=== PATIENT | female | born 1945 | race Caucasian/White ===

== ENCOUNTER 2017-10-03 16:08 | Inpatient (IN) ==
[2017-10-03] MEDS ORDERED: Famotidine 20 MG TABLET PO PRN (20:20)
[2017-10-03] MEDS ORDERED: Acetaminophen 325 MG TABLET PO PRN (20:25)
[2017-10-03] MEDS ORDERED: Bisacodyl 10 MG RECTAL SUPPOSITORY RC PRN (20:25)
[2017-10-03] MEDS ORDERED: Ondansetron ODT 4 MG TAB.RAPDIS SL PRN (20:29)
[2017-10-03] MEDS ORDERED: NON-FORMULARY MEDICATION 1 EACH EACH PO SCH (21:00)
[2017-10-03] MEDS ORDERED: Melatonin 3 MG TABLET PO SCH (21:00)
[2017-10-03] MEDS: Sennosides 8.6 MG TABLET PO SCH (22:27)
[2017-10-03] MEDS: *HR* OxyCODONE Immed Rel 5 MG TABLET PO PRN (22:28)
[2017-10-04] MEDS: *HR* OxyCODONE Immed Rel 5 MG TABLET PO PRN ×2 (02:18→16:35)
[2017-10-04 06:01] LABS: Basophils % 0.3 %; Eosinophils # 0.2 K/mcL (0.0-0.6); Eosinophils % 1.7 %; Hematocrit 26.4 % (35.3-44.9); Immature Granulocytes % 0.3 % (0-4); Lymphocytes # 1.5 K/mcL (0.6-4.6); Lymphocytes % 16.3 %; Mean Corpuscular HGB Conc 34.1 g/dL (31.6-35.5); Mean Corpuscular Hemoglobin 32.3 pg (28.0-33.3); Mean Corpuscular Volume 94.6 fL (83.0-100.0); Mean Platelet Volume 9.2 fL (9.4-12.4); Monocytes # 0.9 K/mcL (0.0-1.3); Monocytes % 10.3 %; Neutrophils # 6.4 K/mcL (1.6-8.9); Platelet Count 495 K/mcL (140-400); Red Blood Count 2.79 M/mcL (3.82-4.97); Red Cell Distribution Width 12.1 % (11.5-14.5); Segmented Neutrophils % 71.1 %
[2017-10-04 06:14] LABS: Alanine Aminotransferase 26 Units/L (7-52); Albumin 2.9 g/dL (3.5-5.7); Albumin/Globulin Ratio 1.2 (1.1-2.2); Alkaline Phosphatase 103 Units/L (34-104); Aspartate Amino Transferase 34 Units/L (13-39); BUN/Creatinine Ratio 13 (6-26); Bilirubin,Total 0.3 mg/dL (0.3-1.0); Blood Urea Nitrogen 7 mg/dL (8-23); Carbon Dioxide 27 mEq/L (23-29); Chloride 101 mEq/L (98-107); Globulin 2.5 g/dL (2.4-3.5); Glucose 113 mg/dL (70-105); INR 1.1; Osmolality,Calculated 277 (280-300); Prothrombin Time 12.1 Seconds (9.4-12.1); Sodium 134 mEq/L (136-145); Total Protein 5.4 g/dL (6.4-8.9); eGFR For Non-African Americans > 60 (> 60)
[2017-10-04 06:17] LABS: Activated Partial Thrombo Time 35.2 Seconds (26.0-36.0)
[2017-10-04] MEDS: diazePAM 5 MG TABLET PO PRN ×2 (11:45→22:50)
[2017-10-04] MEDS: Aspirin 81 MG TAB.CHEW PO SCH (11:45)
[2017-10-04] MEDS: Sennosides 8.6 MG TABLET PO SCH ×2 (11:45→22:50)
[2017-10-04] MEDS: Loratadine/Pseudophed (12 HR) 1 EACH TABLET PO SCH (11:46)
[2017-10-04] MEDS: Multivit/Ca/Min/Fe/FA 1 TAB TABLET PO SCH (11:47)
[2017-10-04] MEDS: *HR* Enoxaparin 40 MG/0.4 ML SYRINGE SQ SCH (11:55)
[2017-10-04] MEDS: Tiotropium 18 MCG inhalation IH SCH (12:03)
[2017-10-04] MEDS: Latanoprost 2.5 ML BOTTLE BOTH EYES SCH (12:57)
--- NOTE | 2017-10-04 13:39 | Internal Med History&Physical ---
Date of Encounter: 10/04/17 Time of Encounter: 13:34 Assessment and Plan (1) Cervical myelopathy Current visit: Yes Status: Acute recent fusion C2-T2. continue cervical collar. PT and OT to eval and treat. will follow progress. f/u with neurologist as scheduled. (2) Osteoarthritis Current visit: Yes Status: Acute stable. will monitor. hx of left TKR with recent fall. having increased pain , has been given the OK from ortho to participate with therapy. Qualifiers: Osteoarthritis location: multiple joints Osteoarthritis type: primary Qualified Code(s): M15.0 - Primary generalized (osteo)arthritis (3) COPD (chronic obstructive pulmonary disease) Current visit: Yes Status: Chronic stable. monitor. Qualifiers: COPD type: unspecified COPD Qualified Code(s): J44.9 - Chronic obstructive pulmonary disease, unspecified Internal Medicine - H&P: HPI Admitted From: Hospital to Hospital Transfer Plans for Post Hospital Care: Home History of present illness: Ms. Hansen is a 72 year old female admitted to unit status post C2 3 OT to confusion after presenting with severe cervical myelopathy and worsening upper extremity dysfunction. Had severe spinal cord compression in upper C-spine. This was performed at [facility] with Dr Andrew. Past medical history includes COPD, she was a former smoker. Arthritis, AAA diagnosed 10 years ago, prior C3 to C7 ACDF. Goal is to return to home. Lives with daughter and son-in-law although they are not in Great health themselves and cannot provide much care. Lives in a one-story house with 3 steps to enter. Patient denies any increased pain, fever, chills, nausea vomiting or diarrhea at this time. Taking Valium to control postop spasms. States this is effective. Past Med Surg Social Fam HX - Past Medical History Medical history: arthritis, COPD, glaucoma, hyperlipidemia, hypertension Additional medical history: Aneurysm Psychiatric history: no psych history - Past Surgical History Surgical History: herniorrhaphy, orthopedic, other, other Additional surgical history: Left Knee Replacement, Tubal Ligation, Cervical Disk Surgery - Social History Smoking Status: Former smoker Smokeless Tobacco Status: No Alcohol use: none Drug use: none - Family History Mother Hx Family Cardiac Disorders: Yes (HTN, heart disease) Hx Family Endocrine Disorder: Yes (hypothyroidism) Father Hx Family Cardiac Disorders: Yes (Heart disease) Sister Hx Family Cancer: Yes (Metastatic gynecological cancer) Internal Medicine - H&P: Meds Albuterol Sulfate [Proair Hfa] 2 puff IH Q6HR PRN 11/11/15 [History] Atorvastatin [Lipitor] 10 mg PO HS 11/11/15 [History] Latanoprost [Xalatan] 1 drop BOTH EYES DAILY 11/11/15 [History] Lisinopril-HCTZ 10-12.5 [Prinzide 10-12.5] 1 each PO DAILY 11/11/15 [History] Meloxicam 3 mg PO BID 11/11/15 [History] Aspirin 81 mg PO DAILY 11/12/15 [History] Multivitamin [Multivitamins] 1 each PO DAILY 06/29/17 [History] Naproxen [Naprosyn] 500 mg PO BID 06/29/17 [History] Tiotropium [Spiriva] 18 mcg IH 0700 06/29/17 [History] Albuterol Sulfate [Albuterol Inhaler] 0 puff IH Q6HR 10/03/17 [History] Famotidine [Pepcid] 20 mg PO DAILY PRN 10/03/17 [History] Loratadine/Pseudophed (12 HR) [Claritin D (12HR)] 1 each PO DAILY 10/03/17 [ History] Melatonin [Melatin] 9 mg PO HS 10/03/17 [History] Rogers-3 Acid Ethyl Esters [Lovaza] 1 gm PO DAILY 10/03/17 [History] 3 Allergy/AdvReac Type Severity Reaction Status Date / Time No Known Allergies Allergy Verified 10/03/17 19:34 All Systems PM: A 10-system review of systems was performed and is negative for pertinent findings except as documented above in the HPI. - Constitutional Constitutional: no chills, no fever(s), no night sweats - EENT Eyes: no change in vision, no discharge, no pain, no photophobia Ears: no ear discharge, no ear pain, no tinnitus Nose, mouth and throat: no dysphagia, no nasal discharge, no neck pain, no sore throat - Cardiovascular Cardiovascular ROS IM: no chest pain, no diaphoresis, no dyspnea, no lightheadedness, no palpitations, no syncope - Respiratory Respiratory: no cough, no dyspnea, no wheezing, no excessive phlegm production - Gastrointestinal Gastrointestinal: no abdominal pain, no diarrhea, no hematemesis, no hematochezia, no melena, no nausea, no vomiting - Genitourinary Genitourinary: no change in urinary stream, no dysuria, no flank pain, no hematuria - Musculoskeletal Musculoskeletal ROS IM: no numbness, no tingling - Integumentary Integumentary IM: no rash, no unusual bruising - Neurological Neurological ROS: no confusion, no convulsions, no focal weakness, no numbness, no tingling, no tremor(s) - Hematologic/Lymphatic Hematologic/Lymphatic: no easy bruising - Constitutional Vitals: Temp Pulse Resp BP Pulse Ox 97.8 F 130 16 111/67 94 10/04/17 12:00 10/04/17 12:00 10/04/17 12:00 10/04/17 12:00 10/04/17 12:00 General appearance: Present: cooperative, A&O X 3, pleasant, no acute distress, answers questions appropriately Exam: wearing cervical collar. - Head Head exam: Present: atraumatic, normocephalic - Eye Eye exam: Present: PERRL, conjuntiva pink, sclera anicteric Pupils: Present: PERRL - Neck Neck exam general surgery: Present: supple, trachea midline. Absent: lymphadenopathy - Respiratory Respiratory exam: Present: CTAB. Absent: accessory muscle use, rales, rhonchi, wheezes - Cardiovascular Cardiovascular exam: Present: RRR, +S1, +S2. Absent: diastolic murmur, gallop, rubs, systolic murmur - GI/Abdominal GI/Abdominal exam: Present: normal bowel sounds, soft, no peritoneal signs. Absent: distended, tenderness - Extremities Exam Extremities exam: Present: warm, radial pulses palpable and symmetrical. Absent : calf tenderness, cyanotic, pedal edema - Neurological Exam Neurological exam: Present: CN II-XII intact, oriented X3, no focal deficits. Absent: pronater drift, facial droop, speech deficit - Skin Skin exam: Present: dry, intact Internal Med - H&P Results - Labs CBC & Chem 7: 10/04/17 05:10 10/04/17 05:10 Labs: Short CBC 10/04/17 Range/Units 05:10 WBC 9.0 (4.3-11.1) K/mcL Hgb 9.0 L (11.5-15.4) g/dL Hct 26.4 L (35.3-44.9) % Plt Count 495 H (140-400) K/mcL Neutrophils # 6.4 (1.6-8.9) K/mcL BMP 10/04/17 05:10 Sodium 134 L Potassium 4.0 Chloride 101 Carbon Dioxide 27 BUN 7 L Creatinine 0.53 L Glucose 113 H Calcium 9.0 Liver Function 10/04/17 Range/Units 05:10 Total Bilirubin 0.3 (0.3-1.0) mg/dL AST 34 (13-39) Units/L ALT 26 (7-52) Units/L Alkaline Phosphatase 103 (34-104) Units/L Albumin 2.9 L (3.5-5.7) g/dL
--- NOTE | 2017-10-04 16:21 | Electrocardiograph Report ---
[place] [address] Test Date: 2017-10-03 Pat Name: Mary Hansen Department: 2001 Room: 116 Gender: F Clerk [employer]: [id number] : 1945 Requested By: Nathan Romero Order Number: [id number] Reading MD: Di Oh Measurements Intervals [place] Rate: 135 P: 35 NH: 102 QRS: 49 QRSD: 77 T: 47 QT: 263 QTc: 342 Interpretive Statements BASELINE ARTIFACT LIMITS INTERPRETATION PROBABLE SINUS RHYTHM WITH PAC'S Electronically Signed On 10-04-2017 16:20:06 EDT by Di Oh
[2017-10-05] MEDS: *HR* OxyCODONE Immed Rel 5 MG TABLET PO PRN ×3 (04:32→16:37)
[2017-10-05] MEDS: Sennosides 8.6 MG TABLET PO SCH ×2 (09:39→20:11)
[2017-10-05] MEDS: Loratadine/Pseudophed (12 HR) 1 EACH TABLET PO SCH (09:39)
[2017-10-05] MEDS: Multivit/Ca/Min/Fe/FA 1 TAB TABLET PO SCH (09:39)
[2017-10-05] MEDS: Aspirin 81 MG TAB.CHEW PO SCH (09:40)
[2017-10-05] MEDS: *HR* Enoxaparin 40 MG/0.4 ML SYRINGE SQ SCH (09:41)
[2017-10-05] MEDS: Latanoprost 2.5 ML BOTTLE BOTH EYES SCH ×2 (09:42→20:12)
[2017-10-05] MEDS: Tiotropium 18 MCG inhalation IH SCH (09:42)
--- NOTE | 2017-10-05 12:50 | Internal Med Progress Note ---
Date of Encounter: 10/05/17 Time of Encounter: 12:48 - Assessment and plan (1) Cervical myelopathy Current Visit: Yes Status: Acute Assessment and plan: Improving. Continue PT and OT. Will follow progress. Follow up with neurosurgeon as scheduled. (2) Osteoarthritis Current Visit: Yes Status: Acute Assessment and plan: Pain controlled. Continue current medications. Qualifiers: Osteoarthritis location: multiple joints Osteoarthritis type: primary Qualified Code(s): M15.0 - Primary generalized (osteo)arthritis (3) COPD (chronic obstructive pulmonary disease) Current Visit: Yes Status: Chronic Assessment and plan: Controlled. Will monitor. Qualifiers: COPD type: unspecified COPD Qualified Code(s): J44.9 - Chronic obstructive pulmonary disease, unspecified - Time Spent With Patient less than 15 minutes - Subjective Interval history: Participating well with therapy. Ambulating to bathroom with Walker with unsteady gait. Patient incontinent of bowel and bladder. Has not had a bowel movement for a couple days. Discussed taking suppository if no results later. Requires assist with toileting for wiping and pulling pants up-and-down. Strength and bilateral upper extremities is slowly improving. Able to feed self with adaptive equipment. Denies complaints of pain, fever, chills, nausea , vomiting or diarrhea. Family at bedside. - Constitutional Vitals: Temp Pulse Resp BP Pulse Ox 98.6 F 122 16 100/66 94 10/05/17 06:36 10/05/17 06:36 10/05/17 06:36 10/05/17 06:36 10/05/17 06:36 General appearance: Present: cooperative, A&O X 3, pleasant, no acute distress, answers questions appropriately - Head Head exam: Present: atraumatic, normocephalic - Eye Eye exam: Present: PERRL, conjuntiva pink, sclera anicteric Pupils: Present: PERRL - Neck Neck exam general surgery: Present: supple, trachea midline. Absent: lymphadenopathy - Respiratory Respiratory exam: Present: CTAB. Absent: accessory muscle use, rales, rhonchi, wheezes - Cardiovascular Cardiovascular exam: Present: RRR, +S1, +S2. Absent: diastolic murmur, gallop, rubs, systolic murmur - GI/Abdominal GI/Abdominal exam: Present: normal bowel sounds, soft, no peritoneal signs. Absent: distended, tenderness - Extremities Exam Extremities exam: Present: warm, radial pulses palpable and symmetrical. Absent : calf tenderness, cyanotic, pedal edema Additional comments: Weakness to bilateral upper extremities. 4\5 strength - Neurological Exam Neurological exam: Present: CN II-XII intact, oriented X3, no focal deficits. Absent: pronater drift, facial droop, speech deficit - Skin Skin exam: Present: dry, intact Internal Medicine: Result - Labs CBC & Chem 7: 10/04/17 05:10 10/04/17 05:10 - ABG Interpretation ABG results: PT/INR, D-dimer PT 12.1 Seconds (9.4-12.1) 10/04/17 05:10 Consult Discharge Plan - Plan Referrals: Farrukh Cotton MD [Primary Care Provider] -
[2017-10-06] MEDS: *HR* OxyCODONE Immed Rel 5 MG TABLET PO PRN ×3 (06:13→20:45)
[2017-10-06] MEDS: Aspirin 81 MG TAB.CHEW PO SCH (07:57)
[2017-10-06] MEDS: Multivit/Ca/Min/Fe/FA 1 TAB TABLET PO SCH (07:57)
[2017-10-06] MEDS: Sennosides 8.6 MG TABLET PO SCH ×2 (07:57→20:45)
[2017-10-06] MEDS: Loratadine/Pseudophed (12 HR) 1 EACH TABLET PO SCH (07:57)
[2017-10-06] MEDS: *HR* Enoxaparin 40 MG/0.4 ML SYRINGE SQ SCH (07:59)
[2017-10-06] MEDS: Tiotropium 18 MCG inhalation IH SCH (09:31)
--- NOTE | 2017-10-06 10:25 | Internal Med Progress Note ---
Date of Encounter: 10/06/17 Time of Encounter: :23 - Assessment and plan (1) Cervical myelopathy Current Visit: Yes Status: Acute Assessment and plan: Patient continues to show moderate generalized myelopathy. Noted continued slight hyperreflexia. No acute neurological deficits had been noted on exam when compared patient's previous exams documented. Nursing reports patient is able to ambulate with feasible walker, but remains a fall risk due to unsteady gait. Patient reportedly has difficulty initiating standing from a sitting position due to weakened hip extension. Posterior neck surgical incision with slight erythema but remains intact and appears to be healing well. Cervical collar remains in place and will continue for 4 weeks per neurosurgery. Patient to continue with physical therapy which she states she believes is progressing well. Patient states she feels that she has gained some of her strength back over the past several days. Patient to continue follow-up with neurosurgery. (2) S/P TKR (total knee replacement) Current Visit: Yes Status: Chronic Assessment and plan: Patient continues to have complaints of pain to her left knee, which increases slightly with physical therapy. Patient has Lidoderm patch in place which she states is effective. Left knee remains slightly swollen but no erythema. Patient's knee replacement was done remotely. Qualifiers: Laterality: left Qualified Code(s): Z96.652 - Presence of left artificial knee joint - Time Spent With Patient less than 15 minutes - Subjective Interval history: Patient appears relaxed. Patient states she has slight discomfort to her left knee, which has increased during therapy. Patient states that she has had a remote knee replacement and that the use of Lidoderm patches have been effective. Patient states that she feels that her strength is improving slightly with physical therapy. Patient denies any acute neurological deficits. Patient continues to have cervical collar in place. - Constitutional Vitals: Temp Pulse Resp BP Pulse Ox 98.1 F 120 20 122/75 99 10/06/17 08:39 10/06/17 08:39 10/06/17 08:39 10/06/17 08:39 10/06/17 08:39 General appearance: Present: cooperative, A&O X 3, pleasant, no acute distress, answers questions appropriately - Head Head exam: Present: atraumatic, normocephalic - Eye Eye exam: Present: PERRL, conjuntiva pink, sclera anicteric Pupils: Present: PERRL - Neck Neck exam general surgery: Present: supple, trachea midline. Absent: lymphadenopathy Additional comments: Posterior midline surgical incision appears intact with no drainage noted. Minimal erythema noted surrounding incision. Dressing is dry and intact - Respiratory Respiratory exam: Present: CTAB. Absent: accessory muscle use, rales, rhonchi, wheezes - Cardiovascular Cardiovascular exam: Present: RRR, +S1, +S2. Absent: diastolic murmur, gallop, rubs, systolic murmur - GI/Abdominal GI/Abdominal exam: Present: normal bowel sounds, soft, no peritoneal signs. Absent: distended, tenderness - Extremities Exam Extremities exam: Present: warm, radial pulses palpable and symmetrical. Absent : calf tenderness, cyanotic, pedal edema Additional comments: Left knee appears slightly swollen with Lidoderm patch in place. No erythema or signs of obvious injury noted - Neurological Exam Neurological exam: Present: CN II-XII intact, oriented X3. Absent: pronater drift, facial droop, speech deficit Additional comments: Patient continues to have generalized weakness. MS for BUE at 4/5 for ext/flex, and noted slight increased weakness distally with grasp strength R>L. Noted diffiulty with fine motor of hands. Pt observed being able to hold her pitcher of water with right hand. BLE also with 4/5, with noted increased weakness noted on hip flex. Hyperreflexia noted to all extremities +3/5. Noted Hoffmanns sign bilateral. No decreased sensation noted. - Skin Skin exam: Present: dry, intact Internal Medicine: Result - Labs CBC & Chem 7: 10/04/17 05:10 10/04/17 05:10 - ABG Interpretation ABG results: PT/INR, D-dimer PT 12.1 Seconds (9.4-12.1) 10/04/17 05:10 Consult Discharge Plan - Plan Referrals: Farrukh Cotton MD [Primary Care Provider] -
[2017-10-06] MEDS: Latanoprost 2.5 ML BOTTLE BOTH EYES SCH (20:45)
[2017-10-07] MEDS: *HR* OxyCODONE Immed Rel 5 MG TABLET PO PRN ×3 (08:53→21:30)
[2017-10-07] MEDS: Sennosides 8.6 MG TABLET PO SCH ×2 (08:54→21:29)
[2017-10-07] MEDS: Loratadine/Pseudophed (12 HR) 1 EACH TABLET PO SCH (08:54)
[2017-10-07] MEDS: Multivit/Ca/Min/Fe/FA 1 TAB TABLET PO SCH (08:54)
[2017-10-07] MEDS: Aspirin 81 MG TAB.CHEW PO SCH (08:54)
[2017-10-07] MEDS: *HR* Enoxaparin 40 MG/0.4 ML SYRINGE SQ SCH (08:55)
--- NOTE | 2017-10-07 12:42 | Internal Med Progress Note ---
Date of Encounter: 10/07/17 Time of Encounter: 12:40 - Assessment and plan (1) Cervical myelopathy Current Visit: Yes Status: Acute Assessment and plan: Patient continues to show moderate generalized myelopathy. Noted continued slight hyperreflexia. No acute neurological deficits had been noted on exam when compared patient's previous exams documented. Nursing reports patient is able to ambulate with feasible walker, but remains a fall risk due to unsteady gait. Patient reportedly has difficulty initiating standing from a sitting position due to weakened hip extension. Posterior neck surgical incision with slight erythema but remains intact and appears to be healing well. Cervical collar remains in place and will continue for 4 weeks per neurosurgery. Patient to continue with physical therapy which she states she believes is progressing well. Patient to continue follow-up with neurosurgery. (2) S/P TKR (total knee replacement) Current Visit: Yes Status: Chronic Assessment and plan: Patient continues to have complaints of pain to her left knee, which increases slightly with physical therapy. Patient has Lidoderm patch in place which she states is effective. Left knee remains slightly swollen but no erythema. Patient's knee replacement was done remotely. Qualifiers: Laterality: left Qualified Code(s): Z96.652 - Presence of left artificial knee joint - Time Spent With Patient less than 15 minutes - Subjective Interval history: Patient appears relaxed. Patient states she has slight discomfort to her left knee, which has increased during therapy. Patient states that she has had pain to a remote knee replacement and that the use of Lidoderm patches have been effective. Patient states that she feels that her strength is improving slightly with physical therapy. Patient denies any acute neurological deficits. Patient continues to have cervical collar in place. - Constitutional Vitals: Temp Pulse Resp BP Pulse Ox 97.7 F 80 16 112/72 96 10/07/17 07:00 10/07/17 07:00 10/07/17 07:00 10/07/17 07:00 10/07/17 07:00 General appearance: Present: cooperative, A&O X 3, pleasant, no acute distress, answers questions appropriately - Head Head exam: Present: atraumatic, normocephalic - Eye Eye exam: Present: PERRL, conjuntiva pink, sclera anicteric Pupils: Present: PERRL - Neck Neck exam general surgery: Present: supple, trachea midline. Absent: lymphadenopathy - Respiratory Respiratory exam: Present: CTAB. Absent: accessory muscle use, rales, rhonchi, wheezes - Cardiovascular Cardiovascular exam: Present: RRR, +S1, +S2. Absent: diastolic murmur, gallop, rubs, systolic murmur - GI/Abdominal GI/Abdominal exam: Present: normal bowel sounds, soft, no peritoneal signs. Absent: distended, tenderness - Extremities Exam Extremities exam: Present: warm, radial pulses palpable and symmetrical. Absent : calf tenderness, cyanotic, pedal edema - Neurological Exam Neurological exam: Present: CN II-XII intact, oriented X3. Absent: pronater drift, facial droop, speech deficit Additional comments: Patient continues with generalized weakness due to central cord syndrome. Patient has muscle strength of 4/5 to all extremities. Patient has difficulty with fine motor when using her hands. Posterior neck midline incision remains dry and intact. Cervical collar in place - Skin Skin exam: Present: dry, intact Internal Medicine: Result - Labs CBC & Chem 7: 10/04/17 05:10 10/04/17 05:10 - ABG Interpretation ABG results: PT/INR, D-dimer PT 12.1 Seconds (9.4-12.1) 10/04/17 05:10 Consult Discharge Plan - Plan Referrals: Farrukh Cotton MD [Primary Care Provider] -
[2017-10-07] MEDS: Tiotropium 18 MCG inhalation IH SCH (13:45)
[2017-10-07] MEDS: Latanoprost 2.5 ML BOTTLE BOTH EYES SCH (21:29)
[2017-10-08] MEDS: Aspirin 81 MG TAB.CHEW PO SCH (07:42)
[2017-10-08] MEDS: Sennosides 8.6 MG TABLET PO SCH ×2 (07:42→19:51)
[2017-10-08] MEDS: *HR* Enoxaparin 40 MG/0.4 ML SYRINGE SQ SCH (07:42)
[2017-10-08] MEDS: Multivit/Ca/Min/Fe/FA 1 TAB TABLET PO SCH (07:43)
[2017-10-08] MEDS: Loratadine/Pseudophed (12 HR) 1 EACH TABLET PO SCH (07:43)
[2017-10-08] MEDS: Tiotropium 18 MCG inhalation IH SCH (07:54)
[2017-10-08] MEDS: *HR* OxyCODONE Immed Rel 5 MG TABLET PO PRN ×3 (07:55→22:11)
--- NOTE | 2017-10-08 14:47 | Internal Med Progress Note ---
Date of Encounter: 10/08/17 Time of Encounter: 14:45 - Assessment and plan (1) Spinal stenosis, cervical region Current Visit: Yes Status: Acute Assessment and plan: She continues to wear her cervical collar and is compliant with therapy. She is having trouble with her dexterity as noted above. We will continue occupational and physical therapy with hopes of improved movement in activities of daily living. She is living independently and needs to be able to be as independent as possible at home. (2) COPD (chronic obstructive pulmonary disease) Current Visit: Yes Status: Chronic Assessment and plan: Clinically stable. We will continue home regimen and follow. Qualifiers: COPD type: unspecified COPD Qualified Code(s): J44.9 - Chronic obstructive pulmonary disease, unspecified (3) Tobacco abuse Current Visit: No Status: Acute Assessment and plan: She is doing fine without smoking here but plans to smoke when she is discharge from hospital. (4) Hyperlipidemia Current Visit: No Status: Acute Assessment and plan: Clinically stable. We will continue home regimen and follow. Qualifiers: Hyperlipidemia type: unspecified Qualified Code(s): E78.5 - Hyperlipidemia , unspecified - Subjective Interval history: Patient is with complaint. She states that she is not feeling much improvement in her dexterity. She is following physical and occupational therapy. Encouraged to do so, at length, in hopes of going home and being independent. She states that she is moving her bowels on a regular basis and she is pleased with progress, from this standpoint. Patient was interviewed and examined in front of her daughter and ex-. With her permission, their questions were answered as well. Patient has no complaint of chest discomfort, dyspnea, orthopnea, palpitations, nausea or vomiting, constipation or diarrhea, other changes in bowel habits, difficulty with urination, rash or itching, or other new complaints, except as mentioned above. Review of systems is otherwise negative. I discussed management of her care with nursing staff. - Constitutional Vitals: Temp Pulse Resp BP Pulse Ox 98.7 F 103 18 106/69 94 10/08/17 07:41 10/08/17 07:41 10/08/17 07:41 10/08/17 07:41 10/08/17 07:41 General appearance: Present: pleasant, answers questions appropriately Exam: Examination: (Except as mentioned above): General: In no apparent distress. Alert and oriented 3. Nondiaphoretic. Head: Atraumatic and normocephalic. Respiratory: No use of accessory muscles. Lungs are clear throughout. Normal airflow. Cardiovascular: Regular rate and rhythm without murmur appreciated. Abdomen: Bowel sounds are normal. No hepatosplenomegaly mass or tenderness appreciated. Obese and therefore difficult to palpate deeply. Extremities: No cyanosis clubbing or edema. Skin: Warm and non-diaphoretic with no new lesions noted. Internal Medicine: Result - Labs CBC & Chem 7: 10/04/17 05:10 10/04/17 05:10 - ABG Interpretation ABG results: PT/INR, D-dimer PT 12.1 Seconds (9.4-12.1) 10/04/17 05:10 Consult Discharge Plan - Plan Referrals: Farrukh Cotton MD [Primary Care Provider] -
[2017-10-08] MEDS: Latanoprost 2.5 ML BOTTLE BOTH EYES SCH (19:52)
[2017-10-09] MEDS: *HR* Enoxaparin 40 MG/0.4 ML SYRINGE SQ SCH (07:45)
[2017-10-09] MEDS: Aspirin 81 MG TAB.CHEW PO SCH (07:45)
[2017-10-09] MEDS: Multivit/Ca/Min/Fe/FA 1 TAB TABLET PO SCH (07:46)
[2017-10-09] MEDS: Loratadine/Pseudophed (12 HR) 1 EACH TABLET PO SCH (07:47)
[2017-10-09] MEDS: Sennosides 8.6 MG TABLET PO SCH ×2 (07:47→20:10)
[2017-10-09] MEDS: Tiotropium 18 MCG inhalation IH SCH (07:48)
[2017-10-09] MEDS: *HR* OxyCODONE Immed Rel 5 MG TABLET PO PRN ×3 (08:01→20:11)
--- NOTE | 2017-10-09 12:36 | Internal Med Progress Note ---
Date of Encounter: 10/09/17 Time of Encounter: 12:34 - Assessment and plan (1) Cervical myelopathy Current Visit: Yes Status: Acute Assessment and plan: Improving. Continue PT and OT. Will follow progress. Follow up with neurosurgeon as scheduled. (2) Osteoarthritis Current Visit: Yes Status: Acute Assessment and plan: Pain controlled. Continue current medications. Qualifiers: Osteoarthritis location: multiple joints Osteoarthritis type: primary Qualified Code(s): M15.0 - Primary generalized (osteo)arthritis (3) COPD (chronic obstructive pulmonary disease) Current Visit: Yes Status: Chronic Assessment and plan: Controlled. Will monitor. Qualifiers: COPD type: unspecified COPD Qualified Code(s): J44.9 - Chronic obstructive pulmonary disease, unspecified - Time Spent With Patient less than 15 minutes - Subjective Interval history: Ambulating to bathroom with Walker with unsteady gait. Strength in bilateral upper extremities is slowly improving. Able to feed self with adaptive equipment. Denies complaints of pain, fever, chills, nausea, vomiting or diarrhea. Has follow-up appointment with [facility]surgery [facility] tomorrow. - Constitutional Vitals: Temp Pulse Resp BP Pulse Ox 97.4 F L 115 17 123/71 92 10/09/17 06:53 10/09/17 06:53 10/09/17 06:53 10/09/17 06:53 10/09/17 06:53 General appearance: Present: A&O X 3, pleasant, answers questions appropriately - Head Head exam: Present: atraumatic, normocephalic - Eye Eye exam: Present: PERRL, conjuntiva pink, sclera anicteric Pupils: Present: PERRL - Neck Neck exam general surgery: Present: supple, trachea midline. Absent: lymphadenopathy - Respiratory Respiratory exam: Present: CTAB. Absent: accessory muscle use, rales, rhonchi, wheezes - Cardiovascular Cardiovascular exam: Present: RRR, +S1, +S2. Absent: diastolic murmur, gallop, rubs, systolic murmur - GI/Abdominal GI/Abdominal exam: Present: normal bowel sounds, soft, no peritoneal signs. Absent: distended, tenderness - Extremities Exam Extremities exam: Present: warm, radial pulses palpable and symmetrical. Absent : calf tenderness, cyanotic, pedal edema Additional comments: Bilateral upper extremities, hands week. Strength 4\5 - Neurological Exam Neurological exam: Present: CN II-XII intact, oriented X3, no focal deficits. Absent: pronater drift, facial droop, speech deficit - Skin Skin exam: Present: dry, intact Internal Medicine: Result - Labs CBC & Chem 7: 10/04/17 05:10 10/04/17 05:10 - ABG Interpretation ABG results: PT/INR, D-dimer PT 12.1 Seconds (9.4-12.1) 10/04/17 05:10 Consult Discharge Plan - Plan Referrals: Farrukh Cotton MD [Primary Care Provider] -
[2017-10-09] MEDS: Latanoprost 2.5 ML BOTTLE BOTH EYES SCH (20:13)
[2017-10-10] MEDS: *HR* OxyCODONE Immed Rel 5 MG TABLET PO PRN ×4 (01:00→22:10)
[2017-10-10 07:05] LABS: Basophils % 0.5 %; Eosinophils # 0.1 K/mcL (0.0-0.6); Eosinophils % 1.2 %; Hematocrit 27.2 % (35.3-44.9); Hemoglobin 9.1 g/dL (11.5-15.4); Immature Granulocytes % 0.3 % (0-4); Lymphocytes # 1.3 K/mcL (0.6-4.6); Lymphocytes % 14.9 %; Mean Corpuscular HGB Conc 33.5 g/dL (31.6-35.5); Mean Corpuscular Hemoglobin 31.5 pg (28.0-33.3); Mean Corpuscular Volume 94.1 fL (83.0-100.0); Mean Platelet Volume 8.1 fL (9.4-12.4); Monocytes # 0.9 K/mcL (0.0-1.3); Monocytes % 10.6 %; Neutrophils # 6.2 K/mcL (1.6-8.9); Platelet Count 704 K/mcL (140-400); Red Blood Count 2.89 M/mcL (3.82-4.97); Red Cell Distribution Width 12.1 % (11.5-14.5); Segmented Neutrophils % 72.5 %
[2017-10-10 07:48] LABS: BUN/Creatinine Ratio 13 (6-26); Blood Urea Nitrogen 8 mg/dL (8-23); Calcium 9.5 mg/dL (8.6-10.3); Carbon Dioxide 27 mEq/L (23-29); Chloride 95 mEq/L (98-107); Glucose 104 mg/dL (70-105); Osmolality,Calculated 269 (280-300); Sodium 130 mEq/L (136-145); eGFR For Non-African Americans > 60 (> 60)
[2017-10-10] MEDS: Aspirin 81 MG TAB.CHEW PO SCH (08:11)
[2017-10-10] MEDS: Multivit/Ca/Min/Fe/FA 1 TAB TABLET PO SCH (08:11)
[2017-10-10] MEDS: Sennosides 8.6 MG TABLET PO SCH ×2 (08:11→22:09)
[2017-10-10] MEDS: Loratadine/Pseudophed (12 HR) 1 EACH TABLET PO SCH (08:11)
[2017-10-10] MEDS: Tiotropium 18 MCG inhalation IH SCH (10:27)
[2017-10-10] MEDS: *HR* Enoxaparin 40 MG/0.4 ML SYRINGE SQ SCH (11:26)
--- NOTE | 2017-10-10 13:42 | Internal Med Progress Note ---
Date of Encounter: 10/10/17 Time of Encounter: 13:40 - Assessment and plan (1) Cervical myelopathy Current Visit: Yes Status: Acute Assessment and plan: Improving. Continue PT and OT. Will follow progress. went to [facility] today to follow up with surgeon. to return on 11/07 (2) Osteoarthritis Current Visit: Yes Status: Acute Assessment and plan: Pain controlled. Continue current medications. Qualifiers: Osteoarthritis location: multiple joints Osteoarthritis type: primary Qualified Code(s): M15.0 - Primary generalized (osteo)arthritis (3) COPD (chronic obstructive pulmonary disease) Current Visit: Yes Status: Chronic Assessment and plan: Controlled. Will monitor. Qualifiers: COPD type: unspecified COPD Qualified Code(s): J44.9 - Chronic obstructive pulmonary disease, unspecified - Time Spent With Patient less than 15 minutes - Subjective Interval history: went to f/u at [facility] today with neurosurgeon. cervical collar to remain on when up. Strength in bilateral upper extremities is slowly improving. Denies complaints of pain, fever, chills, nausea, vomiting or diarrhea. - Constitutional Vitals: Temp Pulse Resp BP Pulse Ox 98.4 F 105 16 100/65 95 10/10/17 06:33 10/10/17 06:33 10/10/17 06:33 10/10/17 06:33 10/10/17 06:33 General appearance: Present: A&O X 3, pleasant, answers questions appropriately - Head Head exam: Present: atraumatic, normocephalic - Eye Eye exam: Present: PERRL, conjuntiva pink, sclera anicteric Pupils: Present: PERRL - Neck Neck exam general surgery: Present: supple, trachea midline. Absent: lymphadenopathy - Respiratory Respiratory exam: Present: CTAB. Absent: accessory muscle use, rales, rhonchi, wheezes - Cardiovascular Cardiovascular exam: Present: RRR, +S1, +S2. Absent: diastolic murmur, gallop, rubs, systolic murmur - GI/Abdominal GI/Abdominal exam: Present: normal bowel sounds, soft, no peritoneal signs. Absent: distended, tenderness - Extremities Exam Extremities exam: Present: warm, radial pulses palpable and symmetrical. Absent : calf tenderness, cyanotic, pedal edema Additional comments: weakness bilat UE 4/5 - Neurological Exam Neurological exam: Present: CN II-XII intact, oriented X3, no focal deficits. Absent: pronater drift, facial droop, speech deficit - Skin Skin exam: Present: dry, intact Internal Medicine: Result - Labs CBC & Chem 7: 10/10/17 07:00 10/10/17 07:00 Labs: Short CBC 10/10/17 Range/Units 07:00 WBC 8.6 (4.3-11.1) K/mcL Hgb 9.1 L (11.5-15.4) g/dL Hct 27.2 L (35.3-44.9) % Plt Count 704 H (140-400) K/mcL Neutrophils # 6.2 (1.6-8.9) K/mcL BMP 10/10/17 07:00 Sodium 130 L Potassium 4.0 Chloride 95 L Carbon Dioxide 27 BUN 8 Creatinine 0.60 Glucose 104 Calcium 9.5 - ABG Interpretation ABG results: PT/INR, D-dimer PT 12.1 Seconds (9.4-12.1) 10/04/17 05:10 Consult Discharge Plan - Plan Referrals: Farrukh Cotton MD [Primary Care Provider] -
[2017-10-10] MEDS: Latanoprost 2.5 ML BOTTLE BOTH EYES SCH (22:09)
[2017-10-11] MEDS: *HR* OxyCODONE Immed Rel 5 MG TABLET PO PRN ×4 (06:54→23:10)
[2017-10-11] MEDS: Multivit/Ca/Min/Fe/FA 1 TAB TABLET PO SCH (09:19)
[2017-10-11] MEDS: Tiotropium 18 MCG inhalation IH SCH (09:19)
[2017-10-11] MEDS: Sennosides 8.6 MG TABLET PO SCH ×2 (09:20→21:27)
[2017-10-11] MEDS: Loratadine/Pseudophed (12 HR) 1 EACH TABLET PO SCH (09:20)
[2017-10-11] MEDS: Aspirin 81 MG TAB.CHEW PO SCH (09:20)
[2017-10-11] MEDS: diazePAM 5 MG TABLET PO PRN ×2 (09:20→21:26)
[2017-10-11] MEDS: *HR* Enoxaparin 40 MG/0.4 ML SYRINGE SQ SCH (09:21)
--- NOTE | 2017-10-11 09:31 | Internal Med Progress Note ---
Date of Encounter: 10/11/17 Time of Encounter: 09:29 - Assessment and plan (1) Cervical myelopathy Current Visit: Yes Status: Acute Assessment and plan: Improving. Continue PT and OT. Will follow progress. went to [facility] today to follow up with surgeon. to return on 11/07 (2) Osteoarthritis Current Visit: Yes Status: Acute Assessment and plan: Pain controlled. Continue current medications. Qualifiers: Osteoarthritis location: multiple joints Osteoarthritis type: primary Qualified Code(s): M15.0 - Primary generalized (osteo)arthritis (3) COPD (chronic obstructive pulmonary disease) Current Visit: Yes Status: Chronic Assessment and plan: Controlled. Will monitor. Qualifiers: COPD type: unspecified COPD Qualified Code(s): J44.9 - Chronic obstructive pulmonary disease, unspecified - Time Spent With Patient less than 15 minutes - Subjective Interval history: participating well with therapy. min assist to transfer with walker. requires assistance with pulling up pants for toileting. feeds self after set up with use of adaptive equiptment. cervical collar to remain on when up. Strength in bilateral upper extremities is slowly improving. Denies complaints of pain, fever, chills, nausea, vomiting or diarrhea. maintaining appetite and hydration. - Constitutional Vitals: Temp Pulse Resp BP Pulse Ox 98.1 F 113 16 105/70 95 10/11/17 07:14 10/11/17 07:14 10/11/17 07:14 10/11/17 07:14 10/11/17 07:14 General appearance: Present: A&O X 3, pleasant, answers questions appropriately - Head Head exam: Present: atraumatic, normocephalic - Eye Eye exam: Present: PERRL, conjuntiva pink, sclera anicteric Pupils: Present: PERRL - Neck Neck exam general surgery: Present: supple, trachea midline. Absent: lymphadenopathy - Respiratory Respiratory exam: Present: CTAB. Absent: accessory muscle use, rales, rhonchi, wheezes - Cardiovascular Cardiovascular exam: Present: RRR, +S1, +S2. Absent: diastolic murmur, gallop, rubs, systolic murmur - GI/Abdominal GI/Abdominal exam: Present: normal bowel sounds, soft, no peritoneal signs. Absent: distended, tenderness - Extremities Exam Extremities exam: Present: warm, radial pulses palpable and symmetrical. Absent : calf tenderness, cyanotic, pedal edema Additional comments: weakness BUE 4/5 - Neurological Exam Neurological exam: Present: CN II-XII intact, oriented X3, no focal deficits. Absent: pronater drift, facial droop, speech deficit - Skin Skin exam: Present: dry, intact Internal Medicine: Result - Labs CBC & Chem 7: 10/10/17 07:00 10/10/17 07:00 - ABG Interpretation ABG results: PT/INR, D-dimer PT 12.1 Seconds (9.4-12.1) 10/04/17 05:10 - VTE Documentation of Mechanical Device: Graduated compression elastic hosiery Consult Discharge Plan - Plan Referrals: Farrukh Cotton MD [Primary Care Provider] -
[2017-10-11] MEDS: Latanoprost 2.5 ML BOTTLE BOTH EYES SCH (21:26)
[2017-10-12] MEDS: *HR* OxyCODONE Immed Rel 5 MG TABLET PO PRN ×3 (05:11→22:50)
[2017-10-12] MEDS: *HR* Enoxaparin 40 MG/0.4 ML SYRINGE SQ SCH (07:30)
[2017-10-12] MEDS: Multivit/Ca/Min/Fe/FA 1 TAB TABLET PO SCH (07:31)
[2017-10-12] MEDS: Sennosides 8.6 MG TABLET PO SCH ×2 (07:31→19:40)
[2017-10-12] MEDS: Loratadine/Pseudophed (12 HR) 1 EACH TABLET PO SCH (07:31)
[2017-10-12] MEDS: Aspirin 81 MG TAB.CHEW PO SCH (07:31)
[2017-10-12] MEDS: Tiotropium 18 MCG inhalation IH SCH (07:55)
--- NOTE | 2017-10-12 14:09 | Internal Med Progress Note ---
Date of Encounter: 10/12/17 Time of Encounter: 14:08 - Assessment and plan (1) Cervical myelopathy Current Visit: Yes Status: Acute Assessment and plan: Improving. Continue PT and OT. Will follow progress. went to [facility] today to follow up with surgeon. to return on 11/07 (2) Osteoarthritis Current Visit: Yes Status: Acute Assessment and plan: Pain controlled. Continue current medications. Qualifiers: Osteoarthritis location: multiple joints Osteoarthritis type: primary Qualified Code(s): M15.0 - Primary generalized (osteo)arthritis (3) COPD (chronic obstructive pulmonary disease) Current Visit: Yes Status: Chronic Assessment and plan: Controlled. Will monitor. Qualifiers: COPD type: unspecified COPD Qualified Code(s): J44.9 - Chronic obstructive pulmonary disease, unspecified - Time Spent With Patient 25 - 35 minutes - Subjective Interval history: continuew to participate well with therapy. min assist to transfer with walker. requires assistance with pulling up pants for toileting. feeds self after set up with use of adaptive equiptment. cervical collar to remain on when up. Strength in bilateral upper extremities is slowly improving. continues to c/o tingling in fingers. Denies complaints of pain, fever, chills , nausea, vomiting or diarrhea. maintaining appetite and hydration. - Constitutional Vitals: Temp Pulse Resp BP Pulse Ox 98.2 F 108 17 105/68 96 10/12/17 07:11 10/12/17 07:11 10/12/17 07:11 10/12/17 07:11 10/12/17 07:11 General appearance: Present: A&O X 3, pleasant, no acute distress, answers questions appropriately - Head Head exam: Present: atraumatic, normocephalic - Eye Eye exam: Present: PERRL, conjuntiva pink, sclera anicteric Pupils: Present: PERRL - Neck Neck exam general surgery: Present: supple, trachea midline. Absent: lymphadenopathy - Respiratory Respiratory exam: Present: CTAB. Absent: accessory muscle use, rales, rhonchi, wheezes - Cardiovascular Cardiovascular exam: Present: RRR, +S1, +S2. Absent: diastolic murmur, gallop, rubs, systolic murmur - GI/Abdominal GI/Abdominal exam: Present: normal bowel sounds, soft, no peritoneal signs. Absent: distended, tenderness - Extremities Exam Extremities exam: Present: warm, radial pulses palpable and symmetrical. Absent : calf tenderness, cyanotic, pedal edema - Neurological Exam Neurological exam: Present: CN II-XII intact, oriented X3, no focal deficits. Absent: pronater drift, facial droop, speech deficit - Skin Skin exam: Present: dry, intact Internal Medicine: Result - Labs CBC & Chem 7: 10/10/17 07:00 10/10/17 07:00 - ABG Interpretation ABG results: PT/INR, D-dimer PT 12.1 Seconds (9.4-12.1) 10/04/17 05:10 - VTE Documentation of Mechanical Device: Graduated compression elastic hosiery Consult Discharge Plan - Plan Referrals: Farrukh Cotton MD [Primary Care Provider] -
[2017-10-12] MEDS: Latanoprost 2.5 ML BOTTLE BOTH EYES SCH (19:40)
[2017-10-13] MEDS: Tiotropium 18 MCG inhalation IH SCH (08:33)
[2017-10-13] MEDS: Loratadine/Pseudophed (12 HR) 1 EACH TABLET PO SCH (08:36)
[2017-10-13] MEDS: Sennosides 8.6 MG TABLET PO SCH ×2 (08:37→20:51)
[2017-10-13] MEDS: Multivit/Ca/Min/Fe/FA 1 TAB TABLET PO SCH (08:37)
[2017-10-13] MEDS: Aspirin 81 MG TAB.CHEW PO SCH (08:37)
[2017-10-13] MEDS: *HR* Enoxaparin 40 MG/0.4 ML SYRINGE SQ SCH (08:37)
[2017-10-13] MEDS: *HR* OxyCODONE Immed Rel 5 MG TABLET PO PRN ×2 (12:07→20:52)
--- NOTE | 2017-10-13 12:08 | Internal Med Progress Note ---
Date of Encounter: 10/13/17 Time of Encounter: 12:05 - Assessment and plan (1) Cervical myelopathy Current Visit: Yes Status: Acute Assessment and plan: Patient continues to show moderate generalized myelopathy. Noted continued slight hyperreflexia. No acute neurological deficits had been noted on exam when compared patient's previous exams documented. Posterior neck surgical incision with slight erythema but remains intact and appears to be healing well. Cervical collar continued per neurosurgery. Patient to continue with physical therapy which she states she believes is progressing well. Patient to continue follow-up with neurosurgery. (2) S/P TKR (total knee replacement) Current Visit: Yes Status: Chronic Assessment and plan: Patient continues to have complaints of pain to her left knee, which increases slightly with physical therapy. Left knee remains slightly swollen but no erythema. Patient's knee replacement was done remotely. Qualifiers: Laterality: left Qualified Code(s): Z96.652 - Presence of left artificial knee joint (3) COPD (chronic obstructive pulmonary disease) Current Visit: Yes Status: Chronic Assessment and plan: No acute issues. Patient's lungs remain clear and patient denies any dyspnea or productive cough. We will continue with current medications. Qualifiers: COPD type: unspecified COPD Qualified Code(s): J44.9 - Chronic obstructive pulmonary disease, unspecified - Time Spent With Patient less than 15 minutes - Subjective Interval history: Patient appears relaxed. Patient states that she feels that her strength is improving slightly with physical therapy. Patient denies any acute neurological deficits. Patient continues to have cervical collar in place. Denies any other acute discomforts or dyspnea - Constitutional Vitals: Temp Pulse Resp BP Pulse Ox 98.4 F 127 16 97/65 96 10/13/17 07:14 10/13/17 07:14 10/13/17 07:14 10/13/17 07:14 10/13/17 07:14 General appearance: Present: A&O X 3, pleasant, no acute distress, answers questions appropriately - Head Head exam: Present: atraumatic, normocephalic - Eye Eye exam: Present: PERRL, conjuntiva pink, sclera anicteric Pupils: Present: PERRL - Neck Neck exam general surgery: Present: supple, trachea midline. Absent: lymphadenopathy Additional comments: Midline posterior neck incision appears to be healing well. - Respiratory Respiratory exam: Present: CTAB. Absent: accessory muscle use, rales, rhonchi, wheezes - Cardiovascular Cardiovascular exam: Present: RRR, +S1, +S2. Absent: diastolic murmur, gallop, rubs, systolic murmur - GI/Abdominal GI/Abdominal exam: Present: normal bowel sounds, soft, no peritoneal signs. Absent: distended, tenderness - Extremities Exam Extremities exam: Present: warm, radial pulses palpable and symmetrical. Absent : calf tenderness, cyanotic, pedal edema Additional comments: left knee slightly swollen, but nontender. No erythema - Neurological Exam Neurological exam: Present: CN II-XII intact, oriented X3. Absent: pronater drift, facial droop, speech deficit Additional comments: Patient continues to have generalized weakness due to her cervical myelopathy. BUE shows 4/5 MS for distal/prox for flex/ext with slight R>L. BLE have 4/5 MS. + ronak. Noted slight clonus to BLE. Noted hyperreflexia - Skin Skin exam: Present: dry, intact Internal Medicine: Result - Labs CBC & Chem 7: 10/10/17 07:00 10/10/17 07:00 - ABG Interpretation ABG results: PT/INR, D-dimer PT 12.1 Seconds (9.4-12.1) 10/04/17 05:10 - VTE Documentation of Mechanical Device: Graduated compression elastic hosiery Consult Discharge Plan - Plan Referrals: Farrukh Cotton MD [Primary Care Provider] -
[2017-10-13] MEDS: Latanoprost 2.5 ML BOTTLE BOTH EYES SCH (20:51)
[2017-10-14] MEDS: Tiotropium 18 MCG inhalation IH SCH (09:36)
[2017-10-14] MEDS: Multivit/Ca/Min/Fe/FA 1 TAB TABLET PO SCH (09:55)
[2017-10-14] MEDS: Loratadine/Pseudophed (12 HR) 1 EACH TABLET PO SCH (09:55)
[2017-10-14] MEDS: Aspirin 81 MG TAB.CHEW PO SCH (09:55)
[2017-10-14] MEDS: Sennosides 8.6 MG TABLET PO SCH ×2 (09:55→21:13)
[2017-10-14] MEDS: *HR* Enoxaparin 40 MG/0.4 ML SYRINGE SQ SCH (09:56)
[2017-10-14] MEDS: *HR* OxyCODONE Immed Rel 5 MG TABLET PO PRN ×2 (09:56→20:58)
--- NOTE | 2017-10-14 12:38 | Internal Med Progress Note ---
Date of Encounter: 10/14/17 Time of Encounter: 12:35 - Assessment and plan (1) Cervical myelopathy Current Visit: Yes Status: Acute Assessment and plan: Patient continues to show moderate generalized myelopathy. Noted continued slight hyperreflexia. No acute neurological deficits had been noted on exam when compared patient's previous exams documented. Posterior neck surgical incision is dry and intact and appears to be healing well. Cervical collar continued per neurosurgery. Patient to continue with physical therapy which she states she believes is progressing well. Patient to continue follow-up with neurosurgery. (2) S/P TKR (total knee replacement) Current Visit: Yes Status: Chronic Assessment and plan: Patient continues to have complaints of pain to her left knee, which increases slightly with physical therapy. Left knee remains slightly swollen but no erythema. Patient's knee replacement was done remotely. Qualifiers: Laterality: left Qualified Code(s): Z96.652 - Presence of left artificial knee joint (3) COPD (chronic obstructive pulmonary disease) Current Visit: Yes Status: Chronic Assessment and plan: No acute issues. Patient's lungs remain clear and patient denies any dyspnea or productive cough. We will continue with current medications. Qualifiers: COPD type: unspecified COPD Qualified Code(s): J44.9 - Chronic obstructive pulmonary disease, unspecified - Time Spent With Patient less than 15 minutes - Subjective Interval history: Patient appears relaxed. Patient states that she feels that her strength is improving slightly with physical therapy. Patient denies any acute neurological deficits. Patient continues to have cervical collar in place. Denies any other acute discomforts or dyspnea - Constitutional Vitals: Temp Pulse Resp BP Pulse Ox 98.0 F 106 18 108/73 95 10/14/17 07:10 10/14/17 07:10 10/14/17 07:10 10/14/17 07:10 10/14/17 07:10 General appearance: Present: A&O X 3, pleasant, no acute distress, answers questions appropriately - Head Head exam: Present: atraumatic, normocephalic - Eye Eye exam: Present: PERRL, conjuntiva pink, sclera anicteric Pupils: Present: PERRL - Neck Neck exam general surgery: Present: supple, trachea midline. Absent: lymphadenopathy Additional comments: Midline posterior surgical incision appears dry and intact. Cervical collar in place. - Respiratory Respiratory exam: Present: CTAB. Absent: accessory muscle use, rales, rhonchi, wheezes - Cardiovascular Cardiovascular exam: Present: RRR, +S1, +S2. Absent: diastolic murmur, gallop, rubs, systolic murmur - GI/Abdominal GI/Abdominal exam: Present: normal bowel sounds, soft, no peritoneal signs. Absent: distended, tenderness - Extremities Exam Extremities exam: Present: warm, radial pulses palpable and symmetrical. Absent : calf tenderness, cyanotic, pedal edema - Neurological Exam Neurological exam: Present: CN II-XII intact, oriented X3. Absent: pronater drift, facial droop, speech deficit Additional comments: Patient continues to have moderate generalized weakness secondary to her cervical myelopathy. Patient has 4/5 muscle strength to bilateral upper extremities both for flexion and extension. Noted some improvement in strength distally to the arms with an grass slightly greater on right than left. Patient has 4/5 muscle strength to bilateral lower extremities and is able to ambulate with assistance of walker, but continues to have difficulty initiating standing from chair. Vazquez's was positive. Patient shows slight hyperreflexia. - Skin Skin exam: Present: dry, intact Internal Medicine: Result - Labs CBC & Chem 7: 10/10/17 07:00 10/10/17 07:00 - ABG Interpretation ABG results: PT/INR, D-dimer PT 12.1 Seconds (9.4-12.1) 10/04/17 05:10 - VTE Documentation of Mechanical Device: Graduated compression elastic hosiery Consult Discharge Plan - Plan Referrals: Farrukh Cotton MD [Primary Care Provider] -
[2017-10-14] MEDS: Latanoprost 2.5 ML BOTTLE BOTH EYES SCH (20:58)
[2017-10-15] MEDS: *HR* OxyCODONE Immed Rel 5 MG TABLET PO PRN ×4 (03:19→20:49)
[2017-10-15 05:35] LABS: Hematocrit 26.2 % (35.3-44.9); Hemoglobin 8.8 g/dL (11.5-15.4); Mean Corpuscular HGB Conc 33.6 g/dL (31.6-35.5); Mean Corpuscular Hemoglobin 31.1 pg (28.0-33.3); Mean Corpuscular Volume 92.6 fL (83.0-100.0); Mean Platelet Volume 8.7 fL (9.4-12.4); Platelet Count 700 K/mcL (140-400); Red Blood Count 2.83 M/mcL (3.82-4.97); Red Cell Distribution Width 12.2 % (11.5-14.5)
[2017-10-15 05:54] LABS: Alanine Aminotransferase 25 Units/L (7-52); Albumin 3.4 g/dL (3.5-5.7); Albumin/Globulin Ratio 1.4 (1.1-2.2); Alkaline Phosphatase 93 Units/L (34-104); Aspartate Amino Transferase 13 Units/L (13-39); BUN/Creatinine Ratio 27 (6-26); Bilirubin,Total 0.3 mg/dL (0.3-1.0); Blood Urea Nitrogen 14 mg/dL (8-23); Calcium 9.2 mg/dL (8.6-10.3); Carbon Dioxide 29 mEq/L (23-29); Chloride 97 mEq/L (98-107); Globulin 2.4 g/dL (2.4-3.5); Glucose 108 mg/dL (70-105); Magnesium 1.9 mg/dL (1.6-2.6); Osmolality,Calculated 277 (280-300); Potassium 4.1 mEq/L (3.5-5.1); Sodium 133 mEq/L (136-145); Total Protein 5.8 g/dL (6.4-8.9); eGFR For Non-African Americans > 60 (> 60)
[2017-10-15] MEDS: *HR* Enoxaparin 40 MG/0.4 ML SYRINGE SQ SCH (09:41)
[2017-10-15] MEDS: Aspirin 81 MG TAB.CHEW PO SCH (09:41)
[2017-10-15] MEDS: Loratadine/Pseudophed (12 HR) 1 EACH TABLET PO SCH (09:41)
[2017-10-15] MEDS: Sennosides 8.6 MG TABLET PO SCH ×2 (09:42→20:48)
[2017-10-15] MEDS: Multivit/Ca/Min/Fe/FA 1 TAB TABLET PO SCH (09:42)
--- NOTE | 2017-10-15 13:15 | Internal Med Progress Note ---
Date of Encounter: 10/15/17 Time of Encounter: 13:00 - Assessment and plan (1) COPD (chronic obstructive pulmonary disease) Current Visit: Yes Status: Chronic Assessment and plan: No acute issues. Continue current regimen. Qualifiers: COPD type: unspecified COPD Qualified Code(s): J44.9 - Chronic obstructive pulmonary disease, unspecified (2) S/P TKR (total knee replacement) Current Visit: Yes Status: Chronic Assessment and plan: Routine care per PT. Qualifiers: Laterality: left Qualified Code(s): Z96.652 - Presence of left artificial knee joint (3) Cervical myelopathy Current Visit: Yes Status: Acute Assessment and plan: Continue c-collar per NSGY. Routine care per PT. - Time Spent With Patient less than 15 minutes - Subjective Interval history: No particular concern. Has been working with PT. - Constitutional Vitals: Temp Pulse Resp BP Pulse Ox 98.2 F 110 16 102/66 95 10/15/17 10:57 10/15/17 10:57 10/15/17 10:57 10/15/17 10:57 10/15/17 10:57 General appearance: Present: A&O X 3, pleasant, no acute distress, answers questions appropriately Exam: Gen: A&Ox3, NAD. HEENT: NCAT. Neck: In C-collar. CV: Borderline tachycardic with a regular rhythm, S1S2. No murmur. Capillary refill < 2 seconds. Pulm: CTAB. Abd: (+)BS. NDNT. Neuro: Non-focal. Skin: No rash. Ext: No pitting edema. Dressing over left knee c/d/i. Internal Medicine: Result - Labs CBC & Chem 7: 10/15/17 05:05 10/15/17 05:05 Labs: Short CBC 10/15/17 Range/Units 05:05 WBC 10.2 (4.3-11.1) K/mcL Hgb 8.8 L (11.5-15.4) g/dL Hct 26.2 L (35.3-44.9) % Plt Count 700 H (140-400) K/mcL BMP 10/15/17 05:05 Sodium 133 L Potassium 4.1 Chloride 97 L Carbon Dioxide 29 BUN 14 Creatinine 0.51 L Glucose 108 H Calcium 9.2 Liver Function 10/15/17 Range/Units 05:05 Total Bilirubin 0.3 (0.3-1.0) mg/dL AST 13 (13-39) Units/L ALT 25 (7-52) Units/L Alkaline Phosphatase 93 (34-104) Units/L Albumin 3.4 L (3.5-5.7) g/dL - ABG Interpretation ABG results: PT/INR, D-dimer PT 12.1 Seconds (9.4-12.1) 10/04/17 05:10 - VTE Documentation of Mechanical Device: Graduated compression elastic hosiery Consult Discharge Plan - Plan Referrals: Farrukh Cotton MD [Primary Care Provider] -
[2017-10-15] MEDS: Tiotropium 18 MCG inhalation IH SCH (14:00)
[2017-10-15] MEDS: Latanoprost 2.5 ML BOTTLE BOTH EYES SCH (20:48)
[2017-10-16] MEDS: Loratadine/Pseudophed (12 HR) 1 EACH TABLET PO SCH (08:36)
[2017-10-16] MEDS: Aspirin 81 MG TAB.CHEW PO SCH (08:36)
[2017-10-16] MEDS: Multivit/Ca/Min/Fe/FA 1 TAB TABLET PO SCH (08:36)
[2017-10-16] MEDS: *HR* OxyCODONE Immed Rel 5 MG TABLET PO PRN ×3 (08:36→20:02)
[2017-10-16] MEDS: Sennosides 8.6 MG TABLET PO SCH ×2 (08:36→20:01)
[2017-10-16] MEDS: *HR* Enoxaparin 40 MG/0.4 ML SYRINGE SQ SCH (08:37)
--- NOTE | 2017-10-16 09:10 | Internal Med Progress Note ---
Date of Encounter: 10/16/17 Time of Encounter: 09:00 - Assessment and plan (1) COPD (chronic obstructive pulmonary disease) Current Visit: Yes Status: Chronic Assessment and plan: No acute issues. Continue current regimen. Qualifiers: COPD type: unspecified COPD Qualified Code(s): J44.9 - Chronic obstructive pulmonary disease, unspecified (2) S/P TKR (total knee replacement) Current Visit: Yes Status: Chronic Assessment and plan: Routine care per PT. Qualifiers: Laterality: left Qualified Code(s): Z96.652 - Presence of left artificial knee joint (3) Cervical myelopathy Current Visit: Yes Status: Acute Assessment and plan: Continue c-collar per NSGY. Routine care per PT. - Time Spent With Patient less than 15 minutes - Subjective Interval history: No particular concern. Left knee pain is tolerable. - Constitutional Vitals: Temp Pulse Resp BP Pulse Ox 97.9 F 104 16 102/68 94 10/16/17 07:26 10/16/17 07:26 10/16/17 07:26 10/16/17 07:26 10/16/17 07:26 General appearance: Present: A&O X 3, pleasant, no acute distress, answers questions appropriately Exam: Gen: A&Ox3, NAD. HEENT: NCAT. Neck: In C-collar. CV: Borderline tachycardic with a regular rhythm, S1S2. No murmur. Capillary refill < 2 seconds. Pulm: CTAB. Abd: (+)BS. NDNT. Neuro: Non-focal. Skin: No rash. Ext: No pitting edema. Dressing over left knee c/d/i. Internal Medicine: Result - Labs CBC & Chem 7: 10/15/17 05:05 10/15/17 05:05 - ABG Interpretation ABG results: PT/INR, D-dimer PT 12.1 Seconds (9.4-12.1) 10/04/17 05:10 - VTE Documentation of Mechanical Device: Graduated compression elastic hosiery Consult Discharge Plan - Plan Referrals: Farrukh Cotton MD [Primary Care Provider] -
[2017-10-16] MEDS: Tiotropium 18 MCG inhalation IH SCH (10:32)
[2017-10-16] MEDS: Latanoprost 2.5 ML BOTTLE BOTH EYES SCH (20:01)
[2017-10-17 06:17] LABS: Basophils # 0.1 K/mcL (0.0-0.2); Basophils % 0.7 %; Eosinophils # 0.3 K/mcL (0.0-0.6); Eosinophils % 3.6 %; Hematocrit 27.3 % (35.3-44.9); Immature Granulocytes % 0.2 % (0-4); Lymphocytes # 1.8 K/mcL (0.6-4.6); Mean Corpuscular Hemoglobin 30.9 pg (28.0-33.3); Mean Corpuscular Volume 93.8 fL (83.0-100.0); Mean Platelet Volume 8.8 fL (9.4-12.4); Monocytes # 0.8 K/mcL (0.0-1.3); Monocytes % 9.1 %; Neutrophils # 5.6 K/mcL (1.6-8.9); Platelet Count 626 K/mcL (140-400); Red Blood Count 2.91 M/mcL (3.82-4.97); Red Cell Distribution Width 12.3 % (11.5-14.5); Segmented Neutrophils % 65.4 %
[2017-10-17 06:29] LABS: BUN/Creatinine Ratio 23 (6-26); Blood Urea Nitrogen 13 mg/dL (8-23); Calcium 9.2 mg/dL (8.6-10.3); Carbon Dioxide 28 mEq/L (23-29); Chloride 99 mEq/L (98-107); Glucose 102 mg/dL (70-105); Osmolality,Calculated 276 (280-300); Sodium 133 mEq/L (136-145); eGFR For Non-African Americans > 60 (> 60)
[2017-10-17] MEDS: *HR* Enoxaparin 40 MG/0.4 ML SYRINGE SQ SCH (07:39)
[2017-10-17] MEDS: Multivit/Ca/Min/Fe/FA 1 TAB TABLET PO SCH (07:39)
[2017-10-17] MEDS: Loratadine/Pseudophed (12 HR) 1 EACH TABLET PO SCH (07:39)
[2017-10-17] MEDS: Sennosides 8.6 MG TABLET PO SCH ×2 (07:39→20:00)
[2017-10-17] MEDS: Tiotropium 18 MCG inhalation IH SCH (07:39)
[2017-10-17] MEDS: Aspirin 81 MG TAB.CHEW PO SCH (07:39)
[2017-10-17] MEDS: *HR* OxyCODONE Immed Rel 5 MG TABLET PO PRN ×2 (11:26→20:00)
--- NOTE | 2017-10-17 11:44 | Internal Med Progress Note ---
Date of Encounter: 10/17/17 Time of Encounter: 11:15 - Assessment and plan (1) COPD (chronic obstructive pulmonary disease) Current Visit: Yes Status: Chronic Assessment and plan: No acute issues. Continue current regimen. Qualifiers: COPD type: unspecified COPD Qualified Code(s): J44.9 - Chronic obstructive pulmonary disease, unspecified (2) S/P TKR (total knee replacement) Current Visit: Yes Status: Chronic Assessment and plan: Routine care per PT. Qualifiers: Laterality: left Qualified Code(s): Z96.652 - Presence of left artificial knee joint (3) Cervical myelopathy Current Visit: Yes Status: Acute Assessment and plan: Continue c-collar per NSGY. Routine care per PT. Will ask therapy to adjust c- collar as appropriate in order to minimize skin irritation. (4) Skin irritation Current Visit: Yes Status: Acute Assessment and plan: Likely 2/2 friction rub from c-collar against left trapezius. Will apply padding /dressing for now and ask therapy to adjust c-collar as appropriate. (5) Thrombocytosis Current Visit: Yes Status: Acute Assessment and plan: Asymptomatic; clinical monitoring. - Time Spent With Patient less than 15 minutes - Subjective Interval history: Top of left shoulder feels like a burn, otherwise no concern. - Constitutional Vitals: Temp Pulse Resp BP Pulse Ox 98.1 F 105 16 107/66 94 10/17/17 06:54 10/17/17 06:54 10/17/17 06:54 10/17/17 06:54 10/17/17 06:54 General appearance: Present: A&O X 3, pleasant, no acute distress, answers questions appropriately Exam: Gen: A&Ox3, NAD. HEENT: NCAT. Neck: In C-collar. CV: Borderline tachycardic with a regular rhythm, S1S2. No murmur. Capillary refill < 2 seconds. Pulm: CTAB. Abd: (+)BS. NDNT. Neuro: Non-focal. Skin: Erythema noted over the left trapezius right against the c-collar. Ext: No pitting edema. Dressing over left knee c/d/i. Internal Medicine: Result - Labs CBC & Chem 7: 10/17/17 05:35 10/17/17 05:35 Labs: Short CBC 10/17/17 Range/Units 05:35 WBC 8.5 (4.3-11.1) K/mcL Hgb 9.0 L (11.5-15.4) g/dL Hct 27.3 L (35.3-44.9) % Plt Count 626 H (140-400) K/mcL Neutrophils # 5.6 (1.6-8.9) K/mcL BMP 10/17/17 05:35 Sodium 133 L Potassium 4.0 Chloride 99 Carbon Dioxide 28 BUN 13 Creatinine 0.57 L Glucose 102 Calcium 9.2 - ABG Interpretation ABG results: PT/INR, D-dimer PT 12.1 Seconds (9.4-12.1) 10/04/17 05:10 - VTE Documentation of Mechanical Device: Graduated compression elastic hosiery Consult Discharge Plan - Plan Referrals: Farrukh Cotton MD [Primary Care Provider] -
[2017-10-17] MEDS: Latanoprost 2.5 ML BOTTLE BOTH EYES SCH (20:00)
[2017-10-18] MEDS: Tiotropium 18 MCG inhalation IH SCH (07:29)
[2017-10-18] MEDS: *HR* Enoxaparin 40 MG/0.4 ML SYRINGE SQ SCH (07:29)
[2017-10-18] MEDS: Multivit/Ca/Min/Fe/FA 1 TAB TABLET PO SCH (07:30)
[2017-10-18] MEDS: Sennosides 8.6 MG TABLET PO SCH ×2 (07:30→21:58)
[2017-10-18] MEDS: *HR* OxyCODONE Immed Rel 5 MG TABLET PO PRN ×3 (07:30→21:57)
[2017-10-18] MEDS: Aspirin 81 MG TAB.CHEW PO SCH (07:30)
[2017-10-18] MEDS: Loratadine/Pseudophed (12 HR) 1 EACH TABLET PO SCH (07:30)
--- NOTE | 2017-10-18 11:23 | Internal Med Progress Note ---
Date of Encounter: 10/18/17 Time of Encounter: 11:21 - Assessment and plan (1) Cervical myelopathy Current Visit: Yes Status: Acute Assessment and plan: Improving. Continue PT and OT. Will follow progress. went to [facility] today to follow up with surgeon. Continue to wear neck brace. to return on 11/07 (2) Osteoarthritis Current Visit: Yes Status: Acute Assessment and plan: Pain controlled. Continue current medications. Qualifiers: Osteoarthritis location: multiple joints Osteoarthritis type: primary Qualified Code(s): M15.0 - Primary generalized (osteo)arthritis (3) COPD (chronic obstructive pulmonary disease) Current Visit: Yes Status: Chronic Assessment and plan: Controlled. Will monitor. Qualifiers: COPD type: unspecified COPD Qualified Code(s): J44.9 - Chronic obstructive pulmonary disease, unspecified - Time Spent With Patient less than 15 minutes - Subjective Interval history: continues to participate well with therapy. feeds self after set up with use of adaptive equiptment. cervical collar to remain on when up. Strength in bilateral upper extremities is slowly improving. continues to c/o tingling in fingers. Denies complaints of pain, fever, chills, nausea, vomiting or diarrhea. maintaining appetite and hydration. - Constitutional Vitals: Temp Pulse Resp BP Pulse Ox 98.3 F 108 16 104/70 95 10/18/17 08:44 10/18/17 08:44 10/18/17 08:44 10/18/17 08:44 10/18/17 08:44 General appearance: Present: A&O X 3, pleasant, no acute distress, answers questions appropriately - Head Head exam: Present: atraumatic, normocephalic - Eye Eye exam: Present: PERRL, conjuntiva pink, sclera anicteric Pupils: Present: PERRL - Neck Neck exam general surgery: Present: supple, trachea midline. Absent: lymphadenopathy - Respiratory Respiratory exam: Present: CTAB. Absent: accessory muscle use, rales, rhonchi, wheezes - Cardiovascular Cardiovascular exam: Present: RRR, +S1, +S2. Absent: diastolic murmur, gallop, rubs, systolic murmur - GI/Abdominal GI/Abdominal exam: Present: normal bowel sounds, soft, no peritoneal signs. Absent: distended, tenderness - Extremities Exam Extremities exam: Present: warm, radial pulses palpable and symmetrical. Absent : calf tenderness, cyanotic, pedal edema Additional comments: Bilateral upper extremity strength 5\5 - Neurological Exam Neurological exam: Present: CN II-XII intact, oriented X3, no focal deficits. Absent: pronater drift, facial droop, speech deficit - Skin Skin exam: Present: dry, intact Internal Medicine: Result - Labs CBC & Chem 7: 10/17/17 05:35 10/17/17 05:35 - ABG Interpretation ABG results: PT/INR, D-dimer PT 12.1 Seconds (9.4-12.1) 10/04/17 05:10 - VTE Documentation of Mechanical Device: Graduated compression elastic hosiery Consult Discharge Plan - Plan Referrals: Farrukh Cotton MD [Primary Care Provider] -
[2017-10-18] MEDS: Latanoprost 2.5 ML BOTTLE BOTH EYES SCH (22:05)
[2017-10-19 08:36] LABS: % Iron Saturation 11 % (15-50); Iron 33 mcg/dL (50-170); Transferrin 220 mg/dL (203-362)
--- NOTE | 2017-10-19 08:51 | Internal Med Progress Note ---
Date of Encounter: 10/19/17 Time of Encounter: 08:47 - Assessment and plan (1) Cervical myelopathy Current Visit: Yes Status: Acute Assessment and plan: Improving. Continue PT and OT. Will follow progress. Continue to wear neck brace. to return on 11/07 (2) Osteoarthritis Current Visit: Yes Status: Acute Assessment and plan: Pain controlled. Continue current medications. Qualifiers: Osteoarthritis location: multiple joints Osteoarthritis type: primary Qualified Code(s): M15.0 - Primary generalized (osteo)arthritis (3) COPD (chronic obstructive pulmonary disease) Current Visit: Yes Status: Chronic Assessment and plan: Controlled. Will monitor. Qualifiers: COPD type: unspecified COPD Qualified Code(s): J44.9 - Chronic obstructive pulmonary disease, unspecified - Time Spent With Patient 25 - 35 minutes - Subjective Interval history: continues to participate well with therapy. family present during exam. cervical collar to remain on when up. Strength in bilateral upper extremities is slowly improving. continues to c/o tingling in fingers, but improving. Denies complaints of pain, fever, chills, nausea, vomiting or diarrhea. maintaining appetite and hydration. - Constitutional Vitals: Temp Pulse Resp BP Pulse Ox 97.8 F 94 18 97/61 95 10/19/17 07:18 10/19/17 07:18 10/19/17 07:18 10/19/17 07:18 10/19/17 07:18 General appearance: Present: A&O X 3, pleasant, no acute distress, answers questions appropriately - Head Head exam: Present: atraumatic, normocephalic - Eye Eye exam: Present: PERRL, conjuntiva pink, sclera anicteric Pupils: Present: PERRL - Neck Neck exam general surgery: Present: supple, trachea midline. Absent: lymphadenopathy - Respiratory Respiratory exam: Present: CTAB. Absent: accessory muscle use, rales, rhonchi, wheezes - Cardiovascular Cardiovascular exam: Present: RRR, +S1, +S2. Absent: diastolic murmur, gallop, rubs, systolic murmur - GI/Abdominal GI/Abdominal exam: Present: normal bowel sounds, soft, no peritoneal signs. Absent: distended, tenderness - Extremities Exam Extremities exam: Present: warm, radial pulses palpable and symmetrical. Absent : calf tenderness, cyanotic, pedal edema Additional comments: Bilateral upper extremity strength 5\5 - Neurological Exam Neurological exam: Present: CN II-XII intact, oriented X3, no focal deficits. Absent: pronater drift, facial droop, speech deficit - Skin Skin exam: Present: dry, intact Internal Medicine: Result - Labs CBC & Chem 7: 10/17/17 05:35 10/17/17 05:35 - ABG Interpretation ABG results: PT/INR, D-dimer PT 12.1 Seconds (9.4-12.1) 10/04/17 05:10 - VTE Documentation of Mechanical Device: Graduated compression elastic hosiery Consult Discharge Plan - Plan Referrals: Farrukh Cotton MD [Primary Care Provider] -
[2017-10-19] MEDS: Loratadine/Pseudophed (12 HR) 1 EACH TABLET PO SCH (09:36)
[2017-10-19] MEDS: *HR* OxyCODONE Immed Rel 5 MG TABLET PO PRN ×3 (09:40→20:36)
[2017-10-19] MEDS: Multivit/Ca/Min/Fe/FA 1 TAB TABLET PO SCH (09:40)
[2017-10-19] MEDS: Aspirin 81 MG TAB.CHEW PO SCH (09:40)
[2017-10-19] MEDS: Sennosides 8.6 MG TABLET PO SCH ×2 (09:40→20:36)
[2017-10-19] MEDS: *HR* Enoxaparin 40 MG/0.4 ML SYRINGE SQ SCH (09:41)
[2017-10-19] MEDS: Tiotropium 18 MCG inhalation IH SCH (09:45)
[2017-10-19] MEDS: Latanoprost 2.5 ML BOTTLE BOTH EYES SCH (20:36)
[2017-10-20] MEDS: *HR* Enoxaparin 40 MG/0.4 ML SYRINGE SQ SCH (08:52)
[2017-10-20] MEDS: *HR* OxyCODONE Immed Rel 5 MG TABLET PO PRN ×2 (08:52→20:30)
[2017-10-20 08:53] LABS: % Iron Saturation 10 % (15-50); Iron 32 mcg/dL (50-170); Transferrin 221 mg/dL (203-362)
[2017-10-20] MEDS: Multivit/Ca/Min/Fe/FA 1 TAB TABLET PO SCH (08:53)
[2017-10-20] MEDS: Sennosides 8.6 MG TABLET PO SCH ×2 (08:53→20:30)
[2017-10-20] MEDS: Aspirin 81 MG TAB.CHEW PO SCH (08:53)
[2017-10-20] MEDS: Loratadine/Pseudophed (12 HR) 1 EACH TABLET PO SCH (08:53)
[2017-10-20] MEDS: Tiotropium 18 MCG inhalation IH SCH (08:54)
[2017-10-20] MEDS ORDERED: Iron Sucrose Complex 400 MG in 0.9 % Sodium Chloride 250 ML IVPB ONE (11:54)
--- NOTE | 2017-10-20 12:51 | Internal Med Progress Note ---
Date of Encounter: 10/20/17 Time of Encounter: 12:49 - Assessment and plan (1) Cervical myelopathy Current Visit: Yes Status: Acute Assessment and plan: Patient continues to show moderate generalized myelopathy. Noted continued slight hyperreflexia. No acute neurological deficits. Posterior neck surgical incision is dry and intact and appears to be healing well, but noted slight erythema to lower portion of incision. Patient states that she can feel cervical collar rubbing the incision. We will have a Telfa dressing placed on incision for protection.. Cervical collar continued per neurosurgery. Patient to continue with physical therapy which she states she believes is progressing well. Patient to continue follow-up with neurosurgery. (2) COPD (chronic obstructive pulmonary disease) Current Visit: Yes Status: Chronic Assessment and plan: No acute issues. Patient's lungs remain clear and patient denies any dyspnea or productive cough. We will continue with current medications. Qualifiers: COPD type: unspecified COPD Qualified Code(s): J44.9 - Chronic obstructive pulmonary disease, unspecified - Time Spent With Patient less than 15 minutes - Subjective Interval history: Patient appears relaxed. Patient has had some complaints of what she describes her skin irritation to her posterior neck incision, which she states she believes that the padding from her cervical collar rubs against. Patient states that she feels that her strength is improving slightly with physical therapy. Patient denies any acute neurological deficits. Patient continues to have cervical collar in place. Denies any other acute discomforts or dyspnea. Denies any fever or chills. - Constitutional Vitals: Temp Pulse Resp BP Pulse Ox 98.4 F 98 18 115/74 93 10/20/17 07:10 10/20/17 07:10 10/20/17 07:10 10/20/17 07:10 10/20/17 07:10 General appearance: Present: A&O X 3, pleasant, no acute distress, answers questions appropriately - Head Head exam: Present: atraumatic, normocephalic - Eye Eye exam: Present: PERRL, conjuntiva pink, sclera anicteric Pupils: Present: PERRL - Neck Neck exam general surgery: Present: supple, trachea midline. Absent: lymphadenopathy Additional comments: Midline posterior neck incision appears intact with no drainage. Noted slight erythema to lower portion of incision. - Respiratory Respiratory exam: Present: CTAB. Absent: accessory muscle use, rales, rhonchi, wheezes - Cardiovascular Cardiovascular exam: Present: RRR, +S1, +S2. Absent: diastolic murmur, gallop, rubs, systolic murmur - GI/Abdominal GI/Abdominal exam: Present: normal bowel sounds, soft, no peritoneal signs. Absent: distended, tenderness - Extremities Exam Extremities exam: Present: warm, radial pulses palpable and symmetrical. Absent : calf tenderness, cyanotic, pedal edema - Neurological Exam Neurological exam: Present: CN II-XII intact, oriented X3. Absent: pronater drift, facial droop, speech deficit Additional comments: Patient continues with generalized slight muscle weakness, secondary to cervical myelopathy. Patient shows 4/5 muscle strength BUE with noted continued decreased fine motor movement to hands. Hand grasp remain equal bilaterally. Patient continues to have 4/5 muscle strength to bilateral lower extremities. - Skin Skin exam: Present: dry, intact Internal Medicine: Result - Labs CBC & Chem 7: 10/17/17 05:35 10/17/17 05:35 - ABG Interpretation ABG results: PT/INR, D-dimer PT 12.1 Seconds (9.4-12.1) 10/04/17 05:10 - VTE Documentation of Mechanical Device: Graduated compression elastic hosiery Consult Discharge Plan - Plan Referrals: Farrukh Cotton MD [Primary Care Provider] -
[2017-10-20] MEDS: Latanoprost 2.5 ML BOTTLE BOTH EYES SCH (20:42)
[2017-10-21] MEDS: *HR* OxyCODONE Immed Rel 5 MG TABLET PO PRN ×4 (01:41→17:54)
[2017-10-21 04:48] LABS: Hematocrit 27.8 % (35.3-44.9); Hemoglobin 9.2 g/dL (11.5-15.4); Mean Corpuscular HGB Conc 33.1 g/dL (31.6-35.5); Mean Corpuscular Hemoglobin 30.4 pg (28.0-33.3); Mean Corpuscular Volume 91.7 fL (83.0-100.0); Platelet Count 538 K/mcL (140-400); Red Blood Count 3.03 M/mcL (3.82-4.97); Red Cell Distribution Width 12.4 % (11.5-14.5)
[2017-10-21 05:08] LABS: Alanine Aminotransferase 18 Units/L (7-52); Albumin 3.4 g/dL (3.5-5.7); Albumin/Globulin Ratio 1.3 (1.1-2.2); Alkaline Phosphatase 91 Units/L (34-104); Aspartate Amino Transferase 10 Units/L (13-39); BUN/Creatinine Ratio 24 (6-26); Bilirubin,Total 0.3 mg/dL (0.3-1.0); Blood Urea Nitrogen 14 mg/dL (8-23); Calcium 9.4 mg/dL (8.6-10.3); Carbon Dioxide 27 mEq/L (23-29); Chloride 98 mEq/L (98-107); Globulin 2.7 g/dL (2.4-3.5); Glucose 105 mg/dL (70-105); Magnesium 1.9 mg/dL (1.6-2.6); Osmolality,Calculated 277 (280-300); Sodium 133 mEq/L (136-145); Total Protein 6.1 g/dL (6.4-8.9); eGFR For Non-African Americans > 60 (> 60)
[2017-10-21] MEDS: Loratadine/Pseudophed (12 HR) 1 EACH TABLET PO SCH (09:50)
[2017-10-21] MEDS: Sennosides 8.6 MG TABLET PO SCH ×2 (09:50→20:00)
[2017-10-21] MEDS: Aspirin 81 MG TAB.CHEW PO SCH (09:50)
[2017-10-21] MEDS: Multivit/Ca/Min/Fe/FA 1 TAB TABLET PO SCH (09:50)
[2017-10-21] MEDS: Tiotropium 18 MCG inhalation IH SCH (09:53)
[2017-10-21] MEDS: *HR* Enoxaparin 40 MG/0.4 ML SYRINGE SQ SCH (10:34)
--- NOTE | 2017-10-21 15:51 | Internal Med Progress Note ---
Date of Encounter: 10/21/17 Time of Encounter: 15:48 - Assessment and plan (1) Cervical myelopathy Current Visit: Yes Status: Acute Assessment and plan: Patient continues to show moderate generalized myelopathy. Noted continued slight hyperreflexia. No acute neurological deficits. Posterior neck surgical incision is dry and intact and appears to be healing well, but noted slight erythema to lower portion of incision. Will maintain Telfa dsg in place for protection of incision from cervical collar. Cervical collar continued per neurosurgery. Patient to continue with physical therapy which she states she believes is progressing well. Patient to continue follow-up with neurosurgery. (2) COPD (chronic obstructive pulmonary disease) Current Visit: Yes Status: Chronic Assessment and plan: No acute issues. Patient's lungs remain clear and patient denies any dyspnea or productive cough. We will continue with current medications. Qualifiers: COPD type: unspecified COPD Qualified Code(s): J44.9 - Chronic obstructive pulmonary disease, unspecified - Time Spent With Patient less than 15 minutes - Subjective Interval history: Patient appears relaxed. Patient states that she feels that her strength continues to be improving slightly with physical therapy. Patient denies any acute neurological deficits. Patient continues to have cervical collar in place. Denies any other acute discomforts or dyspnea. Denies any fever or chills. - Constitutional Vitals: Temp Pulse Resp BP Pulse Ox 99.1 F 108 17 120/78 93 10/21/17 10:58 10/21/17 10:58 10/21/17 10:58 10/21/17 10:58 10/21/17 10:58 General appearance: Present: A&O X 3, pleasant, no acute distress, answers questions appropriately - Head Head exam: Present: atraumatic, normocephalic - Eye Eye exam: Present: PERRL, conjuntiva pink, sclera anicteric Pupils: Present: PERRL - Neck Neck exam general surgery: Present: supple, trachea midline. Absent: lymphadenopathy - Respiratory Respiratory exam: Present: CTAB. Absent: accessory muscle use, rales, rhonchi, wheezes - Cardiovascular Cardiovascular exam: Present: RRR, +S1, +S2. Absent: diastolic murmur, gallop, rubs, systolic murmur - GI/Abdominal GI/Abdominal exam: Present: normal bowel sounds, soft, no peritoneal signs. Absent: distended, tenderness - Extremities Exam Extremities exam: Present: warm, radial pulses palpable and symmetrical. Absent : calf tenderness, cyanotic, pedal edema - Neurological Exam Neurological exam: Present: CN II-XII intact, oriented X3. Absent: pronater drift, facial droop, speech deficit Additional comments: Patient continues to show cervical myelopathy with 4/5 MS to all ext for both ext/flex at prox/dist. Noted hyperreflexia to BLE. + Arian's bilateral. Cervical color in place with incision showing slight erythema, but remains dry and intact. - Skin Skin exam: Present: dry, intact Internal Medicine: Result - Labs CBC & Chem 7: 10/21/17 04:02 10/21/17 04:02 Labs: Short CBC 10/21/17 Range/Units 04:02 WBC 10.1 (4.3-11.1) K/mcL Hgb 9.2 L (11.5-15.4) g/dL Hct 27.8 L (35.3-44.9) % Plt Count 538 H (140-400) K/mcL BMP 10/21/17 04:02 Sodium 133 L Potassium 4.0 Chloride 98 Carbon Dioxide 27 BUN 14 Creatinine 0.58 L Glucose 105 Calcium 9.4 Liver Function 10/21/17 Range/Units 04:02 Total Bilirubin 0.3 (0.3-1.0) mg/dL AST 10 L (13-39) Units/L ALT 18 (7-52) Units/L Alkaline Phosphatase 91 (34-104) Units/L Albumin 3.4 L (3.5-5.7) g/dL - ABG Interpretation ABG results: PT/INR, D-dimer PT 12.1 Seconds (9.4-12.1) 10/04/17 05:10 - VTE Documentation of Mechanical Device: Graduated compression elastic hosiery Consult Discharge Plan - Plan Referrals: Farrukh Cotton MD [Primary Care Provider] -
[2017-10-21] MEDS: Latanoprost 2.5 ML BOTTLE BOTH EYES SCH (20:01)
[2017-10-22] MEDS: Tiotropium 18 MCG inhalation IH SCH (07:42)
[2017-10-22] MEDS: *HR* Enoxaparin 40 MG/0.4 ML SYRINGE SQ SCH (07:42)
[2017-10-22] MEDS: Multivit/Ca/Min/Fe/FA 1 TAB TABLET PO SCH (07:43)
[2017-10-22] MEDS: Aspirin 81 MG TAB.CHEW PO SCH (07:43)
[2017-10-22] MEDS: Sennosides 8.6 MG TABLET PO SCH ×2 (07:43→19:58)
[2017-10-22] MEDS: Loratadine/Pseudophed (12 HR) 1 EACH TABLET PO SCH (07:43)
[2017-10-22] MEDS: *HR* OxyCODONE Immed Rel 5 MG TABLET PO PRN ×2 (07:43→19:58)
--- NOTE | 2017-10-22 15:52 | Internal Med Progress Note ---
Date of Encounter: 10/22/17 Time of Encounter: 15:49 - Assessment and plan (1) Spinal stenosis, cervical region Current Visit: Yes Status: Acute Assessment and plan: She continues to be in therapy and is improving, per them. She has increased use of her hands so hopefully this means that swelling is improved. We will discuss home-going on Tuesday. (2) COPD (chronic obstructive pulmonary disease) Current Visit: Yes Status: Chronic Assessment and plan: Clinically stable. We will continue home regimen and follow. Qualifiers: COPD type: unspecified COPD Qualified Code(s): J44.9 - Chronic obstructive pulmonary disease, unspecified (3) Tobacco abuse Current Visit: No Status: Acute Assessment and plan: Clinically stable. We will like her to quit smoking which she is obstructive in her comments about this. (4) Hyperlipidemia Current Visit: No Status: Acute Assessment and plan: Clinically stable. We will continue home regimen and follow. Qualifiers: Hyperlipidemia type: unspecified Qualified Code(s): E78.5 - Hyperlipidemia , unspecified - Subjective Interval history: Patient is doing well and has been tired out with therapy but feels she is doing well at therapy. She once to know when she can go home. I told her that we would discuss with therapy on Tuesday which is 2 days from now. She admits to having no bowel movement for a couple of days and we discussed the use of laxative which I instructed her to request and a an order was placed by nursing. Patient has no complaint of chest discomfort, dyspnea, orthopnea, palpitations, nausea or vomiting, constipation or diarrhea, other changes in bowel habits, difficulty with urination, rash or itching, or other new complaints, except as mentioned above. Review of systems is otherwise negative. I discussed management of her care with nursing staff. - Constitutional Vitals: Temp Pulse Resp BP Pulse Ox 98 F 94 16 114/79 94 10/22/17 07:22 10/22/17 07:22 10/22/17 07:22 10/22/17 07:22 10/22/17 07:22 General appearance: Present: pleasant, answers questions appropriately Exam: Examination: (Except as mentioned above): General: In no apparent distress. Alert and oriented 3. Nondiaphoretic. Head: Atraumatic and normocephalic. Respiratory: No use of accessory muscles. Lungs are clear throughout. Normal airflow. Cardiovascular: Regular rate and rhythm without murmur appreciated. Abdomen: Bowel sounds are normal. No hepatosplenomegaly mass or tenderness appreciated. Patient is examined upright in chair and this also limits exam. Obese and therefore difficult to palpate deeply. Extremities: No cyanosis clubbing or edema. Skin: Warm and non-diaphoretic with no new lesions noted. Internal Medicine: Result - Labs CBC & Chem 7: 10/21/17 04:02 10/21/17 04:02 - ABG Interpretation ABG results: PT/INR, D-dimer PT 12.1 Seconds (9.4-12.1) 10/04/17 05:10 - VTE Documentation of Mechanical Device: Graduated compression elastic hosiery Consult Discharge Plan - Plan Referrals: Farrukh Cotton MD [Primary Care Provider] -
[2017-10-22] MEDS: Latanoprost 2.5 ML BOTTLE BOTH EYES SCH (19:59)
[2017-10-23] MEDS: Sennosides 8.6 MG TABLET PO SCH ×2 (07:35→20:40)
[2017-10-23] MEDS: Loratadine/Pseudophed (12 HR) 1 EACH TABLET PO SCH (07:35)
[2017-10-23] MEDS: Multivit/Ca/Min/Fe/FA 1 TAB TABLET PO SCH (07:35)
[2017-10-23] MEDS: Aspirin 81 MG TAB.CHEW PO SCH (07:36)
[2017-10-23] MEDS: *HR* Enoxaparin 40 MG/0.4 ML SYRINGE SQ SCH (07:36)
[2017-10-23] MEDS: *HR* OxyCODONE Immed Rel 5 MG TABLET PO PRN ×2 (07:37→20:40)
--- NOTE | 2017-10-23 10:31 | Internal Med Progress Note ---
Date of Encounter: 10/23/17 Time of Encounter: 10:29 - Assessment and plan (1) Cervical myelopathy Current Visit: Yes Status: Acute Assessment and plan: Improving. Continue PT and OT. Will follow progress. Continue to wear neck brace. to return on 11/07 (2) Osteoarthritis Current Visit: Yes Status: Acute Assessment and plan: Pain controlled. Continue current medications. Qualifiers: Osteoarthritis location: multiple joints Osteoarthritis type: primary Qualified Code(s): M15.0 - Primary generalized (osteo)arthritis (3) COPD (chronic obstructive pulmonary disease) Current Visit: Yes Status: Chronic Assessment and plan: Controlled. Will monitor. continue to encourage smoking cessation. Qualifiers: COPD type: unspecified COPD Qualified Code(s): J44.9 - Chronic obstructive pulmonary disease, unspecified - Time Spent With Patient less than 15 minutes - Subjective Interval history: continues to participate well with therapy. c/0 irritation to neck , feels like collar is rubbing. cervical collar to remain on when up. Strength in bilateral upper extremities is slowly improving. Denies complaints of pain, fever, chills, nausea, vomiting or diarrhea. maintaining appetite and hydration. - Constitutional Vitals: Temp Pulse Resp BP Pulse Ox 98.5 F 77 16 135/74 93 10/23/17 07:46 10/23/17 07:46 10/23/17 07:46 10/23/17 07:46 10/23/17 07:46 General appearance: Present: cooperative, A&O X 3, pleasant, no acute distress, answers questions appropriately - Head Head exam: Present: atraumatic, normocephalic - Eye Eye exam: Present: PERRL, conjuntiva pink, sclera anicteric Pupils: Present: PERRL - Neck Neck exam general surgery: Present: supple, trachea midline. Absent: lymphadenopathy - Respiratory Respiratory exam: Present: CTAB. Absent: accessory muscle use, rales, rhonchi, wheezes - Cardiovascular Cardiovascular exam: Present: RRR, +S1, +S2. Absent: diastolic murmur, gallop, rubs, systolic murmur - GI/Abdominal GI/Abdominal exam: Present: normal bowel sounds, soft, no peritoneal signs. Absent: distended, tenderness - Extremities Exam Extremities exam: Present: warm, radial pulses palpable and symmetrical. Absent : calf tenderness, cyanotic, pedal edema Additional comments: strenth 5/5 bilat UE - Neurological Exam Neurological exam: Present: CN II-XII intact, oriented X3, no focal deficits. Absent: pronater drift, facial droop, speech deficit - Skin Skin exam: Present: dry, intact Additional comments: slight redness to right neck and around surgical incision. Internal Medicine: Result - Labs CBC & Chem 7: 10/21/17 04:02 10/21/17 04:02 - ABG Interpretation ABG results: PT/INR, D-dimer PT 12.1 Seconds (9.4-12.1) 10/04/17 05:10 - VTE Documentation of Mechanical Device: Graduated compression elastic hosiery Consult Discharge Plan - Plan Referrals: Farrukh Cotton MD [Primary Care Provider] -
[2017-10-23] MEDS: Tiotropium 18 MCG inhalation IH SCH (12:23)
[2017-10-23] MEDS: Latanoprost 2.5 ML BOTTLE BOTH EYES SCH (20:49)
[2017-10-24 06:19] LABS: Basophils # 0.1 K/mcL (0.0-0.2); Basophils % 0.7 %; Eosinophils # 0.3 K/mcL (0.0-0.6); Eosinophils % 3.7 %; Hematocrit 28.2 % (35.3-44.9); Hemoglobin 9.4 g/dL (11.5-15.4); Immature Granulocytes % 0.3 % (0-4); Lymphocytes # 1.7 K/mcL (0.6-4.6); Lymphocytes % 18.7 %; Mean Corpuscular HGB Conc 33.3 g/dL (31.6-35.5); Mean Corpuscular Hemoglobin 30.7 pg (28.0-33.3); Mean Corpuscular Volume 92.2 fL (83.0-100.0); Mean Platelet Volume 9.2 fL (9.4-12.4); Monocytes # 0.8 K/mcL (0.0-1.3); Monocytes % 9.2 %; Platelet Count 493 K/mcL (140-400); Red Blood Count 3.06 M/mcL (3.82-4.97); Red Cell Distribution Width 12.8 % (11.5-14.5); Segmented Neutrophils % 67.4 %
[2017-10-24 06:37] LABS: BUN/Creatinine Ratio 22 (6-26); Blood Urea Nitrogen 13 mg/dL (8-23); Calcium 9.6 mg/dL (8.6-10.3); Carbon Dioxide 28 mEq/L (23-29); Chloride 97 mEq/L (98-107); Glucose 100 mg/dL (70-105); Osmolality,Calculated 276 (280-300); Sodium 133 mEq/L (136-145); eGFR For Non-African Americans > 60 (> 60)
[2017-10-24] MEDS: Tiotropium 18 MCG inhalation IH SCH (07:28)
[2017-10-24] MEDS: *HR* OxyCODONE Immed Rel 5 MG TABLET PO PRN ×2 (07:29→18:15)
[2017-10-24] MEDS: Aspirin 81 MG TAB.CHEW PO SCH (07:29)
[2017-10-24] MEDS: Sennosides 8.6 MG TABLET PO SCH ×2 (07:29→19:53)
[2017-10-24] MEDS: *HR* Enoxaparin 40 MG/0.4 ML SYRINGE SQ SCH (07:29)
[2017-10-24] MEDS: Loratadine/Pseudophed (12 HR) 1 EACH TABLET PO SCH (07:29)
[2017-10-24] MEDS: Multivit/Ca/Min/Fe/FA 1 TAB TABLET PO SCH (07:29)
--- NOTE | 2017-10-24 13:27 | Internal Med Progress Note ---
Date of Encounter: 10/24/17 Time of Encounter: 13:25 - Assessment and plan (1) Cervical myelopathy Current Visit: Yes Status: Acute Assessment and plan: Improving. Continue PT and OT. Will follow progress. Continue to wear neck brace. to return on 11/07 (2) Osteoarthritis Current Visit: Yes Status: Acute Assessment and plan: Pain controlled. Continue current medications. Qualifiers: Osteoarthritis location: multiple joints Osteoarthritis type: primary Qualified Code(s): M15.0 - Primary generalized (osteo)arthritis (3) COPD (chronic obstructive pulmonary disease) Current Visit: Yes Status: Chronic Assessment and plan: Controlled. Will monitor. continue to encourage smoking cessation. Qualifiers: COPD type: unspecified COPD Qualified Code(s): J44.9 - Chronic obstructive pulmonary disease, unspecified - Time Spent With Patient less than 15 minutes - Subjective Interval history: continues to participate well with therapy. cervical collar to remain on when up. Strength in bilateral upper extremities continues to improve. Denies complaints of pain, fever, chills, nausea, vomiting or diarrhea. maintaining appetite and hydration. - Constitutional Vitals: Temp Pulse Resp BP Pulse Ox 98.4 F 102 18 115/74 97 10/24/17 07:53 10/24/17 07:53 10/24/17 07:53 10/24/17 07:53 10/24/17 07:53 General appearance: Present: cooperative, A&O X 3, pleasant, no acute distress, answers questions appropriately - Head Head exam: Present: atraumatic, normocephalic - Eye Eye exam: Present: PERRL, conjuntiva pink, sclera anicteric Pupils: Present: PERRL - Neck Neck exam general surgery: Present: supple, trachea midline. Absent: lymphadenopathy - Respiratory Respiratory exam: Present: CTAB. Absent: accessory muscle use, rales, rhonchi, wheezes - Cardiovascular Cardiovascular exam: Present: RRR, +S1, +S2. Absent: diastolic murmur, gallop, rubs, systolic murmur - GI/Abdominal GI/Abdominal exam: Present: normal bowel sounds, soft, no peritoneal signs. Absent: distended, tenderness - Extremities Exam Extremities exam: Present: warm, radial pulses palpable and symmetrical. Absent : calf tenderness, cyanotic, pedal edema - Neurological Exam Neurological exam: Present: CN II-XII intact, oriented X3, no focal deficits. Absent: pronater drift, facial droop, speech deficit - Skin Skin exam: Present: dry, intact Internal Medicine: Result - Labs CBC & Chem 7: 10/24/17 06:03 10/24/17 06:03 Labs: Short CBC 10/24/17 Range/Units 06:03 WBC 8.8 (4.3-11.1) K/mcL Hgb 9.4 L (11.5-15.4) g/dL Hct 28.2 L (35.3-44.9) % Plt Count 493 H (140-400) K/mcL Neutrophils # 6.0 (1.6-8.9) K/mcL BMP 10/24/17 06:03 Sodium 133 L Potassium 4.0 Chloride 97 L Carbon Dioxide 28 BUN 13 Creatinine 0.59 L Glucose 100 Calcium 9.6 - ABG Interpretation ABG results: PT/INR, D-dimer PT 12.1 Seconds (9.4-12.1) 10/04/17 05:10 - VTE Documentation of Mechanical Device: Graduated compression elastic hosiery Consult Discharge Plan - Plan Referrals: Farrukh Cotton MD [Primary Care Provider] -
[2017-10-24] MEDS: Latanoprost 2.5 ML BOTTLE BOTH EYES SCH (19:53)
[2017-10-25] MEDS: *HR* OxyCODONE Immed Rel 5 MG TABLET PO PRN ×3 (08:03→20:40)
[2017-10-25] MEDS: Sennosides 8.6 MG TABLET PO SCH ×2 (08:03→20:41)
[2017-10-25] MEDS: Multivit/Ca/Min/Fe/FA 1 TAB TABLET PO SCH (08:03)
[2017-10-25] MEDS: Loratadine/Pseudophed (12 HR) 1 EACH TABLET PO SCH (08:04)
[2017-10-25] MEDS: *HR* Enoxaparin 40 MG/0.4 ML SYRINGE SQ SCH (08:04)
[2017-10-25] MEDS: Aspirin 81 MG TAB.CHEW PO SCH (08:04)
[2017-10-25] MEDS: Tiotropium 18 MCG inhalation IH SCH (08:05)
[2017-10-25] MEDS: tiZANidine 4 MG TABLET PO PRN (11:22)
--- NOTE | 2017-10-25 12:34 | Internal Med Progress Note ---
Date of Encounter: 10/25/17 Time of Encounter: 12:32 - Assessment and plan (1) Cervical myelopathy Current Visit: Yes Status: Acute Assessment and plan: Improving. Continue PT and OT. Will follow progress. Continue to wear neck brace. to return on 11/07 (2) Osteoarthritis Current Visit: Yes Status: Acute Assessment and plan: Pain controlled. Continue current medications. Qualifiers: Osteoarthritis location: multiple joints Osteoarthritis type: primary Qualified Code(s): M15.0 - Primary generalized (osteo)arthritis (3) COPD (chronic obstructive pulmonary disease) Current Visit: Yes Status: Chronic Assessment and plan: Controlled. Will monitor. continue to encourage smoking cessation. Qualifiers: COPD type: unspecified COPD Qualified Code(s): J44.9 - Chronic obstructive pulmonary disease, unspecified - Time Spent With Patient less than 15 minutes - Subjective Interval history: family at bedside. continues to participate well with therapy. cervical collar to remain on when up. Strength in bilateral upper extremities continues to improve. Denies complaints of pain, fever, chills, nausea, vomiting or diarrhea. maintaining appetite and hydration. - Constitutional Vitals: Temp Pulse Resp BP Pulse Ox 98.0 F 112 18 97/66 96 10/25/17 06:54 10/25/17 06:54 10/25/17 06:54 10/25/17 06:54 10/25/17 06:54 General appearance: Present: cooperative, A&O X 3, pleasant, no acute distress, answers questions appropriately - Head Head exam: Present: atraumatic, normocephalic - Eye Eye exam: Present: PERRL, conjuntiva pink, sclera anicteric Pupils: Present: PERRL - Neck Neck exam general surgery: Present: supple, trachea midline. Absent: lymphadenopathy - Respiratory Respiratory exam: Present: CTAB. Absent: accessory muscle use, rales, rhonchi, wheezes - Cardiovascular Cardiovascular exam: Present: RRR, +S1, +S2. Absent: diastolic murmur, gallop, rubs, systolic murmur - GI/Abdominal GI/Abdominal exam: Present: normal bowel sounds, soft, no peritoneal signs. Absent: distended, tenderness - Extremities Exam Extremities exam: Present: warm, radial pulses palpable and symmetrical. Absent : calf tenderness, cyanotic, pedal edema - Neurological Exam Neurological exam: Present: CN II-XII intact, oriented X3, no focal deficits. Absent: pronater drift, facial droop, speech deficit - Skin Skin exam: Present: dry, intact Internal Medicine: Result - Labs CBC & Chem 7: 10/24/17 06:03 10/24/17 06:03 - ABG Interpretation ABG results: PT/INR, D-dimer PT 12.1 Seconds (9.4-12.1) 10/04/17 05:10 - VTE Documentation of Mechanical Device: Graduated compression elastic hosiery Consult Discharge Plan - Plan Referrals: Farrukh Cotton MD [Primary Care Provider] -
[2017-10-25] MEDS: Latanoprost 2.5 ML BOTTLE BOTH EYES SCH (20:41)
--- NOTE | 2017-10-26 07:39 | Internal Med Progress Note ---
Date of Encounter: 10/26/17 Time of Encounter: 07:38 - Assessment and plan (1) Cervical myelopathy Current Visit: Yes Status: Acute Assessment and plan: Patient continues to show moderate generalized myelopathy with 4/5 muscle strength to all extremities. Patient's muscle strength appears to improved over the last several days.. Noted continued slight hyperreflexia. No acute neurological deficits. Posterior neck surgical incision is dry and intact and appears to be healing well. Cervical collar continued per neurosurgery. Patient to continue with physical therapy which she states she believes is progressing well. Patient to continue follow-up with neurosurgery. (2) COPD (chronic obstructive pulmonary disease) Current Visit: Yes Status: Chronic Assessment and plan: No acute issues. Patient's lungs remain clear and patient denies any dyspnea or productive cough. We will continue with current medications. Qualifiers: COPD type: unspecified COPD Qualified Code(s): J44.9 - Chronic obstructive pulmonary disease, unspecified - Time Spent With Patient less than 15 minutes - Subjective Interval history: Patient appears relaxed. Patient states that she feels that her strength continues to be improving with physical therapy. Patient states that she believes she will discharge tomorrow. Patient denies any acute neurological deficits. Patient continues to have cervical collar in place. Denies any other acute discomforts or dyspnea. Denies any fever or chills. - Constitutional Vitals: Temp Pulse Resp BP Pulse Ox 97.6 F 100 16 111/72 93 10/26/17 06:50 10/26/17 06:50 10/26/17 06:50 10/26/17 06:50 10/26/17 06:50 General appearance: Present: cooperative, A&O X 3, pleasant, no acute distress, answers questions appropriately - Head Head exam: Present: atraumatic, normocephalic - Eye Eye exam: Present: PERRL, conjuntiva pink, sclera anicteric Pupils: Present: PERRL - Neck Neck exam general surgery: Present: supple, trachea midline. Absent: lymphadenopathy - Respiratory Respiratory exam: Present: CTAB. Absent: accessory muscle use, rales, rhonchi, wheezes - Cardiovascular Cardiovascular exam: Present: RRR, +S1, +S2. Absent: diastolic murmur, gallop, rubs, systolic murmur - GI/Abdominal GI/Abdominal exam: Present: normal bowel sounds, soft, no peritoneal signs. Absent: distended, tenderness - Extremities Exam Extremities exam: Present: warm, radial pulses palpable and symmetrical. Absent : calf tenderness, cyanotic, pedal edema - Neurological Exam Neurological exam: Present: CN II-XII intact, oriented X3. Absent: pronater drift, facial droop, speech deficit Additional comments: Patient has cervical myelopathy with muscle strength of 4/5 noted to all extremities. - Skin Skin exam: Present: dry, intact Internal Medicine: Result - Labs CBC & Chem 7: 10/24/17 06:03 10/24/17 06:03 - ABG Interpretation ABG results: PT/INR, D-dimer PT 12.1 Seconds (9.4-12.1) 10/04/17 05:10 - VTE Documentation of Mechanical Device: Graduated compression elastic hosiery Consult Discharge Plan - Plan Referrals: Farrukh Cotton MD [Primary Care Provider] -
[2017-10-26] MEDS: Loratadine/Pseudophed (12 HR) 1 EACH TABLET PO SCH (08:27)
[2017-10-26] MEDS: Sennosides 8.6 MG TABLET PO SCH ×2 (08:27→20:23)
[2017-10-26] MEDS: Multivit/Ca/Min/Fe/FA 1 TAB TABLET PO SCH (08:27)
[2017-10-26] MEDS: *HR* Enoxaparin 40 MG/0.4 ML SYRINGE SQ SCH (08:28)
[2017-10-26] MEDS: Aspirin 81 MG TAB.CHEW PO SCH (08:28)
[2017-10-26] MEDS: *HR* OxyCODONE Immed Rel 5 MG TABLET PO PRN ×3 (08:34→20:23)
[2017-10-26] MEDS: Tiotropium 18 MCG inhalation IH SCH (10:58)
[2017-10-26] MEDS: tiZANidine 4 MG TABLET PO PRN (11:01)
[2017-10-26] MEDS: Latanoprost 2.5 ML BOTTLE BOTH EYES SCH (20:24)
[2017-10-27 07:59] VITALS: BP 124/80
[2017-10-27] MEDS: Aspirin 81 MG TAB.CHEW PO SCH (09:39)
[2017-10-27] MEDS: *HR* OxyCODONE Immed Rel 5 MG TABLET PO PRN (09:39)
[2017-10-27] MEDS: Sennosides 8.6 MG TABLET PO SCH (09:39)
[2017-10-27] MEDS: Loratadine/Pseudophed (12 HR) 1 EACH TABLET PO SCH (09:39)
[2017-10-27] MEDS: Multivit/Ca/Min/Fe/FA 1 TAB TABLET PO SCH (09:40)
[2017-10-27] MEDS: *HR* Enoxaparin 40 MG/0.4 ML SYRINGE SQ SCH (09:41)
[2017-10-27] MEDS: Tiotropium 18 MCG inhalation IH SCH (10:19)
--- NOTE | 2017-10-27 10:43 | Discharge Summary ---
Date of Encounter: 10/27/17 Time of Encounter: 10:40 - Discharge Diagnosis (1) Cervical myelopathy Priority: Primary Status: Acute Comments: Patient was transferred to this facility for rehabilitation due to cervical myelopathy secondary to central cord syndrome. Patient had a posterior cervical laminectomy with midline neck incision appearing healthy and healing well. Patient continued to have moderate generalized weakness with muscle strength to extremities at 4/5. Patient's strength has improved during her stay here over the past several weeks and patient currently can ambulate with the use of a walker. Patient had follow-up with neurosurgery with no changes and plan of care. Patient is to discharge home with home health physical therapy and nursing and is to follow-up with PCP and neurosurgeon. No other acute issues occurred during her stay at this facility. (2) COPD (chronic obstructive pulmonary disease) Priority: Secondary Status: Chronic Comments: Patient has history of COPD. No acute issues during her stay this facility. No complaints of dyspnea or productive cough. Patient is to follow-up with PCP after discharge. She is to continue with her home medications and bronchodilators. Qualifiers: COPD type: unspecified COPD Qualified Code(s): J44.9 - Chronic obstructive pulmonary disease, unspecified Hospital course: Ms. Hansen is a 72 year old female admitted to unit status post C2-3 posterior laminectomy with residual severe cervical myelopathy and worsening upper extremity dysfunction. This was performed at [facility] with Dr Andrew. Past medical history includes COPD, she was a former smoker. Arthritis, AAA diagnosed 10 years ago, prior C3 to C7 ACDF. Patient was admitted to this facility for rehabilitation due to her moderate generalized weakness. On presentation patient's muscle strength was 4/5 to all extremities and has improved to a +4/5 after her stay over the past several weeks. Patient is to continue with physical therapy through home health and is to have home health nursing follow-up.. Neck incision appears healthy and is healed well. No other acute issues has occurred during her stay at this facility. Neurological exam remains nonacute. Patient is to continue with home medications and follow-up with neurosurgery and PCP. Discharge discussed with: patient, family - Time Spent with Patient Total time spent providing and/or coordinating discharge services: Less than 30 minutes - Discharge Medications Home Medications: Albuterol Sulfate [Proair Hfa] 2 puff IH Q6HR PRN 11/11/15 [History] Atorvastatin [Lipitor] 10 mg PO HS 11/11/15 [History] Latanoprost [Xalatan] 1 drop BOTH EYES DAILY 11/11/15 [History] Lisinopril-HCTZ 10-12.5 [Prinzide 10-12.5] 1 each PO DAILY 11/11/15 [History] Meloxicam 3 mg PO BID 11/11/15 [History] Aspirin 81 mg PO DAILY 11/12/15 [History] Multivitamin [Multivitamins] 1 each PO DAILY 06/29/17 [History] Naproxen [Naprosyn] 500 mg PO BID 06/29/17 [History] Tiotropium [Spiriva] 18 mcg IH 0700 06/29/17 [History] Albuterol Sulfate [Albuterol Inhaler] 0 puff IH Q6HR 10/03/17 [History] Famotidine [Pepcid] 20 mg PO DAILY PRN 10/03/17 [History] Loratadine/Pseudophed (12 HR) [Claritin D (12HR)] 1 each PO DAILY 10/03/17 [ History] Melatonin [Melatin] 9 mg PO HS 10/03/17 [History] [place]-3 Acid Ethyl Esters [Lovaza] 1 gm PO DAILY 10/03/17 [History] Allergies/Adverse Reactions: 3 Allergy/AdvReac Type Severity Reaction Status Date / Time No Known Allergies Allergy Verified 10/03/17 19:34 Date of admission: 10/03/17 19:27 Primary care physician: Farrukh Cotton Consults: 10/03/17 20:33 Consult to Occupational Therapy [CONS] Routine Comment: Eval and Treat Reason for Consult: Eval and Treat Does patient have active BEDREST order?: No Is patient medically & hemodynamically stable?: Yes Patient assessed for mobility or mobilized this visit?: No Consult to Physical Therapy [CONS] Routine Comment: Eval and Treat Reason for Consult: Eval and Treat Does patient have active BEDREST order?: No Is patient medically & hemodynamically stable?: Yes Patient assessed for mobility or mobilized this visit?: No Consult to Recreational Therapy [CONS] Routine Comment: Consult to Welding Production Supervisor [CONS] Routine Reason for SW Consult: Discharge planning 10/03/17 20:37 Consult to Physical Medicine/Rehab [CONS] Routine Reason for Consult: Please evaluate and manage therapies' guidelines and recommend pathway to reconditioning. Call Completed: No Discharging clinician: Nathan Romero - Constitutional Vitals: Temp Pulse Resp BP Pulse Ox 98.0 F 101 18 124/80 98 10/27/17 07:58 10/27/17 07:58 10/27/17 07:58 10/27/17 07:58 10/27/17 07:58 General appearance: Present: cooperative, A&O X 3, pleasant, no acute distress, answers questions appropriately - Head Head exam: Present: atraumatic, normocephalic - Eye Eye exam: Present: PERRL, conjuntiva pink, sclera anicteric Pupils: Present: PERRL - Neck Neck exam general surgery: Present: supple, trachea midline. Absent: lymphadenopathy Additional comments: Posterior neck midline incision appears to be healing well and intact. - Respiratory Respiratory exam: Present: CTAB. Absent: accessory muscle use, rales, rhonchi, wheezes - Cardiovascular Cardiovascular exam: Present: RRR, +S1, +S2. Absent: diastolic murmur, gallop, rubs, systolic murmur - GI/Abdominal GI/Abdominal exam: Present: normal bowel sounds, soft, no peritoneal signs. Absent: distended, tenderness - Extremities Exam Extremities exam: Present: warm, radial pulses palpable and symmetrical. Absent : calf tenderness, cyanotic, pedal edema - Neurological Exam Neurological exam: Present: CN II-XII intact, oriented X3. Absent: pronater drift, facial droop, speech deficit Additional comments: Patient has +4/5 muscle strength to all extremities. No acute neurological deficits noted. - Skin Skin exam: Present: dry, intact - Patient Status Disposition: Home Health Service Condition: Good Functional capacity at discharge: uses cane/walker Overall status at discharge: patient is progressing back to baseline - Discharge Instructions Follow Up With: Farrukh Cotton MD [Primary Care Provider] - 12/07/17 9:30 am (Appointment scheduled at [facility] with Dr. Cotton [address] [place] [id number] ) - Diet and Activity Activity: ambulate only with your walker, as per physical therapy Diet: low fat, low cholesterol, low salt diet - VTE Documentation of Mechanical Device: Graduated compression elastic hosiery
--- NOTE | 2017-10-27 11:05 | Physician Discharge Referral ---
Home Health/Hosp Referral Info Transfer to: Home Health Provider in Charge Post Discharge: PCP - Diagnosis (1) Cervical myelopathy Priority: Primary Status: Acute (2) COPD (chronic obstructive pulmonary disease) Priority: Secondary Status: Chronic - Respiratory Orders Smoking Cessation: Smoking cessation has been advised. For more information, call the [place] Tobacco Quit Line at 6-897-OWNM-NOW. - Diet/Nutrition Diet/Nutrition Orders: Regular - Activity Activity Orders: Walker - Services Needed Following services are medically necessary services: Nursing, Physical Therapy - Transfer Medications Home Medications: Albuterol Sulfate [Proair Hfa] 2 puff IH Q6HR PRN 11/11/15 [History] Atorvastatin [Lipitor] 10 mg PO HS 11/11/15 [History] Latanoprost [Xalatan] 1 drop BOTH EYES DAILY 11/11/15 [History] Lisinopril-HCTZ 10-12.5 [Prinzide 10-12.5] 1 each PO DAILY 11/11/15 [History] Meloxicam 3 mg PO BID 11/11/15 [History] Aspirin 81 mg PO DAILY 11/12/15 [History] Multivitamin [Multivitamins] 1 each PO DAILY 06/29/17 [History] Naproxen [Naprosyn] 500 mg PO BID 06/29/17 [History] Tiotropium [Spiriva] 18 mcg IH 0700 06/29/17 [History] Albuterol Sulfate [Albuterol Inhaler] 0 puff IH Q6HR 10/03/17 [History] Famotidine [Pepcid] 20 mg PO DAILY PRN 10/03/17 [History] Loratadine/Pseudophed (12 HR) [Claritin D (12HR)] 1 each PO DAILY 10/03/17 [ History] Melatonin [Melatin] 9 mg PO HS 10/03/17 [History] [place]-3 Acid Ethyl Esters [Lovaza] 1 gm PO DAILY 10/03/17 [History] Allergies/Adverse Reactions: 3 Allergy/AdvReac Type Severity Reaction Status Date / Time No Known Allergies Allergy Verified 10/03/17 19:34 Certification: Further, I certify that my clinical findings support that this patient is homebound (i.e. absences from home require considerable and taxing effort and are for medical reasons or adventism services or infrequently or short duration when for other reasons) because: Homebound Reason: Leaving home requires considerable and taxing effort due to condition Attestation: My signature below is to certify that this patient is under my care and that I, or nurse practitioner, or a physician's anesthesia assistant working with me, has a face-to -face encounter with this patient.
== END 2017-10-27 10:52 | disposition home health service (06) | DRG 950 ==
LOC: INPGRE 19:27